=== PATIENT | male | born 1955 | race Caucasian/White ===

== ENCOUNTER → 2017-01-25 | Outpatient (CLI) | payer OTHER ==
[2017-01-25 13:44] LABS: BASO % 0.3 %; BASO ABS # 0.02 K/uL (0-0.2); COMPLETE YES; EOS % 2.3 %; HEMATOCRIT 42.7 % (42-52); IG% 0.8 %; LYMPH % 21.1 %; LYMPH ABS # 1.28 K/uL (1.2-3.4); MEAN CELL VOLUME 93.8 fL (80-100); MEAN CORPUSCULAR HEMOGLOBIN 31.9 pg (25-34); MEAN PLATELET VOLUME 9.1 fL (7.4-10.4); MONO % 10.5 %; PLATELET COUNT 268 K/uL (130-400); RED BLOOD COUNT 4.55 M/uL (4.7-6.1); WHITE BLOOD COUNT 6.08 K/uL (4.8-10.8)
[2017-01-25 14:19] LABS: ALT/SGPT 54 U/L (12-78); AST/SGOT 23 U/L (15-37); BLOOD UREA NITROGEN 13 mg/dl (7-18); BUN/CREATININE RATIO 13.7 (10-20); CALCIUM 9.5 mg/dl (8.5-10.1); CARBON DIOXIDE 30 mmol/L (21-32); CHLORIDE 104 mmol/L (98-107); CREATININE 0.94 mg/dl (0.60-1.40); GLUCOSE 80 mg/dl (70-99); POTASSIUM 4.1 mmol/L (3.5-5.1); SODIUM 140 mmol/L (136-145)
[2017-01-25 14:22] LABS: ALB/GLOB RATIO 0.9 (0.9-2); ALKALINE PHOSPHATASE 78 U/L (45-117)
== END | disposition home or self-care (01) ==
LOC: C.LABMFLN 09:08
PROVIDERS: ATTEND Family Medicine
DX: K81.0 Acute cholecystitis (principal)

== ENCOUNTER → 2017-06-20 | Outpatient (CLI) | payer OTHER ==
[2017-06-20 18:00] LABS: URINE APPEARANCE CLEAR (CLEAR); URINE BILIRUBIN NEG (NEG); URINE COLOR YELLOW; URINE EPITHELIAL CELL AUTO 0-5 /lpf (0-5); URINE NITRITE NEG (NEG); URINE SPECIFIC GRAVITY 1.023 (1.000-1.030); UROBILINOGEN NEG (NEG)
[2017-06-20 18:04] LABS: MANUAL MICROSCOPIC REQUIRED? NO; REVIEW REQ? NO
== END | disposition home or self-care (01) ==
LOC: C.LABMFLN 16:22
PROVIDERS: ATTEND Family Medicine
DX: Z12.5 Encounter for screening for malignant neoplasm of prostate (principal); R35.0 Frequency of micturition

== ENCOUNTER 2018-10-30 06:15 | Inpatient (IN) ==
--- NOTE | 2018-10-11 14:10 | PAT Medication Instructions ---
Medication Instructions Date of Service October 11, 2018 Home Medications indomethacin 25 mg capsule 25 mg PO BID PRN tamsulosin 0.4 mg capsule 0.4 mg PO HS arthrozene 1 cap PO QPM meloxicam 15 mg tablet 15 mg PO QAM calcium carbonate [Tums] 3 tab PO HS PRN ASK your surgeon for instructions indomethacin 25 mg capsule 25 mg PO BID PRN meloxicam 15 mg tablet 15 mg PO QAM STOP taking 2 weeks before surgery arthrozene 1 cap PO QPM Take evening before surgery tamsulosin 0.4 mg capsule 0.4 mg PO HS calcium carbonate [Tums] 3 tab PO HS PRN (if needed) *NOTHING TO EAT OR DRINK AFTER MIDNIGHT* Other Notes If you have any questions please call us at [phone] or [phone] or [phone] or [phone]
--- NOTE | 2018-10-11 14:43 | Anesthesiology Consultation ---
Date of Service October 11, 2018 Assessment & Plan (1) Encounter for pre-operative examination: Chart Review Chart Review: Acceptable Risk for Surgery and Patient seen in Pre Admission Testing Teaching & Discussion Instructed NPO after midnight before surgery, except medications with 15 cc of water. Medication instructions provided according to the PAT guidelines. History Surgery Operation Date: 10/30/18 10:55 Proposed Procedures p Right Total Hip Replacement - Masood Sandhu MD Height/Weight Height: 5 ft 11 in Weight: 110.9 kg Allergies Allergy/AdvReac Type Severity Reaction Status Date / Time OSMAR Inhibitors Allergy Intermediate Hives Verified 10/11/18 08:28 hydroxyzine Allergy Intermediate Hives Verified 10/11/18 08:28 Medications Home Medications Medication Instructions Recorded Confirmed Last Taken indomethacin 25 mg capsule 25 mg PO BID PRN 04/16/18 10/11/18 Unknown tamsulosin 0.4 mg capsule 0.4 mg PO HS 04/16/18 10/11/18 Unknown arthrozene 1 cap PO QPM 10/01/18 10/11/18 Unknown meloxicam 15 mg tablet 15 mg PO QAM 10/01/18 10/11/18 Unknown calcium carbonate [Tums] 3 tab PO HS PRN 10/11/18 10/11/18 Unknown Past Medical History Medical History Hypertension (Chronic) Was previously medicated for, was d/c'd when pt lost insurance and PCP never re-started it. Gout (Chronic) BPH (benign prostatic hyperplasia) (Chronic) NOCTURIA Adenomatous polyp of colon (Chronic) Abdominal aneurysm (Acute) DR. GALAN MONITORS SIZE WITH ULTRASOUNDS YEARLY GERD (gastroesophageal reflux disease) Osteoarthritis Sciatica BACK INJECTIONS (PAIN CLINIC) Past Family History Family History Father Family history of diabetes mellitus Past Surgical History Surgical History History of tonsillectomy and adenoidectomy (Chronic) Hx of cholecystectomy (Acute) History of colonoscopy History of tooth extraction Past Anesthesia History No Hx of Anesthesia Complications and No Family Hx of Anesthesia Complications History of PONV No Motion Sickness Screening History of Motion Sickness: No Social History Smoking Status: Never smoker Do You Dip or Chew Tobacco: No Hx Alcohol Use: No Hx Substance Use: No substance use type: does not use Exercise / Class Metabolic Activity II 4-5 Yardwork/Stairs/Walk up hill (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 Somewhat limited in activity 2/2 hip pain) Review of Systems Pt denies any recent chest pain, shortness of breath, palpitations, cough, fever. Pt reports "head cold" ~1 month ago, treated with Day/NyQuil Physical Exam Vital Signs BP: 120/76 P: 64bpm SPO2: 94% RA T: 97.8 F R: 16 ENMT Mouth: no dental restorations, no chipped teeth and no loose teeth Thyromental Distance: > or= 3.5 Finger Breadths (3.5) Mallampati Class: III Neck + short neck and + facial hair (medium short mancilla and mustache); neck extension not limited Respiratory normal respiratory effort Auscultation: lungs clear to auscultation bilaterally Cardiovascular Rate/Rhythm: regular rate and regular rhythm Heart Sounds: no murmur Vessels: no carotid bruit Extremities: no edema Testing Electrocardiogram Date: 10/11/18 Findings: + NSR @ (60) Chest X-Ray Date: 10/11/18 1. No acute cardiopulmonary findings. 2. Nodular densities projecting over the lower lungs. These favor nipple shadows however follow-up PA and shallow oblique radiographs of the chest with nipple markers are recommended for confirmation. *Results reviewed by PCP. "Cleared for surgery." Laboratory Results 10/11/18 15:00 10/11/18 15:00 Blood Type O Positive 10/11/18 15:00 Antibody Screen NEGATIVE 10/11/18 15:00 PT 10.9 Seconds (9.0-12.0) 10/11/18 15:00 INR 1.1 (0.9-1.1) 10/11/18 15:00 APTT 29.1 Seconds (21.0-31.0) 10/11/18 15:00
--- NOTE | 2018-10-11 15:16 | XRay Report ---
XR chest Pre-admission PA/Lat CLINICAL HISTORY: Preoperative evaluation. COMPARISON STUDY: No previous studies for comparison. FINDINGS: Upper abdominal surgical clips are incidentally noted. There is no pneumothorax or pleural effusion. There is no consolidation or evidence for pulmonary edema. Nodular densities projecting ove r the lower lungs favor nipple shadows. There is no evidence for pulmonary edema. Cardiac size is nor mal. Mediastinal contours are normal. IMPRESSION: 1. No acute cardiopulmonary findings. 2. Nodular densities projecting over the lower lungs. These favor nipple shadows however follow-up PA and shallow oblique radiographs of the chest with nipple markers are recommended for confirmation. Electronically signed by: Pawel Ochoa M.D. 10/11/2018 3:15 PM
[2018-10-11 15:29] LABS: Basophils # (auto) 0.03 K/uL (0-0.2); Basophils % (auto) 0.6 %; Eosinophils # (auto) 0.22 K/uL (0-0.5); Eosinophils % (auto) 4.2 %; Hematocrit (blood only) 43.6 % (42-52); Hemoglobin 14.9 g/dL (14.0-18.0); Immature Granulocytes # (auto) 0.01 K/uL (0.00-0.02); Immature Granulocytes % (auto) 0.2 %; Lymphocytes # (auto) 1.46 K/uL (1.2-3.4); Lymphocytes % (auto) 28.1 %; Mean Corpuscular Hgb Conc 34.2 g/dL (32-36); Mean Corpuscular Volume 97.3 fL (80-100); Mean Platelet Volume 9.6 fL (7.4-10.4); Monocytes # (auto) 0.47 K/uL (0.11-0.59); Monocytes % (auto) 9.1 %; Neutrophils % (auto) 57.8 %; Platelet Count 169 K/uL (130-400); RDW Coefficient of Variation 13.6 % (11.5-14.5); RDW Standard Deviation 48.5 fL (36.4-46.3); Red Blood Count 4.48 M/uL (4.7-6.1); White Blood Count 5.19 K/uL (4.8-10.8)
[2018-10-11 15:36] LABS: BUN Creatinine Ratio 15.9 (10-20); Calcium 9.1 mg/dl (8.5-10.1); Creatinine Clr Calc Pharmacy 81.8 ml/min; Est GFR (African American) 76.4; Potassium 4.1 mmol/L (3.5-5.1)
[2018-10-11 15:49] LABS: INR 1.1 (0.9-1.1); Partial Thromboplastin Ratio 1.1; Partial Thromboplastin Time 29.1 Seconds (21.0-31.0); Prothrombin Time 10.9 Seconds (9.0-12.0)
--- NOTE | 2018-10-26 10:29 | History and Physical Report ---
DATE OF ADMISSION: 10/30/2018 CHIEF COMPLAINT: Right hip and leg pain. 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 He has about 1-year history of markedly increasing right hip pain and discomfort that has just gotten worse over time. He was initially diagnosed with sciatica and treated with some therapy in pain clinic. He has had injections which have not helped much. Eventually, he was referred to my partner, Dr. Lechuga. At that point, he was diagnosed with some hip arthritis. Over time, his pain has just gotten worse. He has pain in his groin and thigh area. The more he walks, the more it hurts. He has difficulty putting his shoes and socks on. The more he walks, the more it hurts. 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 PAST MEDICAL HISTORY: Significant for: 1. AAA, followed by his primary care doctor and apparently stable. 2. Gastroesophageal reflux disease. 3. Obesity with BMI of 34. 4. Low back pain/sciatica. 5. BPH. 6. Gout. PAST SURGICAL HISTORY: Previous surgeries include cholecystectomy. ALLERGIES: Hydroxyzine. CURRENT MEDICINES: 1. Meloxicam 15 mg a day. 2. Tamsulosin. 3. Tums. 4. Indomethacin. SOCIAL HISTORY: A 63-year-old male. 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 He is . He is from [place]. Two children. Does not drink. FAMILY HISTORY: Significant for heart disease, prostate cancer, liver cancer. REVIEW OF HISTORY: Negative for diabetes, neurologic problems, vascular problems, bleeding disorders. No chest pain or shortness of breath. Does have this history of aortic aneurysm which has been stable by ultrasound for 3 years. No history of DVT or PE. PHYSICAL EXAMINATION: GENERAL: Shows a pleasant middle-aged male who looks to be in pretty good health. HEENT: Benign. NECK: Supple. No lymphadenopathy. LUNGS: Clear to auscultation. HEART: Regular rate and rhythm. ABDOMEN: Soft, nontender, nondistended. EXTREMITIES: Grossly neurovascularly intact except as follows: Examination of the right hip and leg reveals patient walks with a significant limp. Leg lengths clinically appear pretty equal. He has got very stiff hip with internal rotation to -5. He has pain with internal rotation. Externally rotates to 20 degrees. Negative straight leg raise. X-RAYS: X-rays of the right hip were reviewed. Shows advanced right hip DJD. He has got complete loss of his superior joint space. He has got cystic changes of the femoral head. X-rays of the knee were reviewed. Shows fairly mild medial compartment arthritis. 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 He has some underlying knee and back issues, looks like his hip is probably the most severe and contributing lesion to his function. PLAN: We talked about treatment. He would like to have his right hip replaced. We are going to take him to the operating room and do a right total hip replacement. The risks and benefits of this procedure were explained to the patient include but not limited to DVT, PE, , infection, neurological injury, vascular injury, bleeding problem, pain, limited range of motion, stiffness, failure to relieve symptoms, incomplete relief of symptoms, need for further surgery in future, fracture, leg length inequality, nerve palsy, dislocation, need for revision surgery. The patient understands and desires to proceed. Informed consent was obtained. We did talk to him about holding his Indocin and meloxicam 10 days preop. He is planning to be discharged home using [facility] home health program.
[~2018-10-30 06:15] MED LIST: ACETAMINOPHEN 500 MG TAB PO SCH; CEFAZOLIN 2000MG 2,000 MG/15 ML SYR IV SCH; FAMOTIDINE 20 MG TAB PO SCH; GABAPENTIN 300 MG x 2 PO SCH; LR 500ML BOLUS, THEN 15ML/HR IV SCH; LR 60ML/HR IV SCH; METOCLOPRAMIDE HCL 10 MG TABLET PO SCH; SCOPOLAMINE 1.5 MG TDSY TD SCH; TRANEXAMIC ACID 1,000 MG **IV Pre-op IV SCH
[2018-10-30] MEDS ORDERED: BUPIVACAINE 0.5 % 5 MG/1 ML PF 10ML VIAL ONE (06:41)
--- NOTE | 2018-10-30 06:54 | History & Physical Bridge Note ---
Date of Service October 30, 2018 History & Physical Bridge Note I have examined the patient, reviewed the History & Physical and in the interval since the performance of the History & Physical I have noted the following changes of clinical significance: no changes noted
[2018-10-30] MEDS ORDERED: DEXAMETHASONE SOD INJ 4 MG/ML VIAL ONE (08:31)
[2018-10-30] MEDS ORDERED: ONDANSETRON INJ 2 MG/ML 2 ML VIAL ONE (08:31)
[2018-10-30] MEDS ORDERED: LIDOCAINE HCL 2% 2 ML VIAL/AMP(20MG/ML) INFIL ONE (08:31)
[2018-10-30] MEDS ORDERED: PROPOFOL IV EMULSION 10 MG/ML 20 ML VIAL IV ONE (08:31)
[2018-10-30] MEDS ORDERED: MoRPHine SULFATE PF 1 MG/ML 10 ML AMP/VIAL ONE (08:33)
[2018-10-30] MEDS ORDERED: MIDAZOLAM HCL 1 MG/ML 2ML VIAL ONE (08:33)
[2018-10-30] MEDS ORDERED: fentaNYL citrate 100 MCG/2 ML VIAL ONE (08:33)
[2018-10-30] MEDS ORDERED: BUPIVACAINE/EPINEPHRINE 0.5% MPF 1:200,000 30 ML VIAL ONE (08:50)
[2018-10-30] MEDS ORDERED: BACITRACIN INJ 50,000 UNIT VIAL ONE (08:51)
[2018-10-30] MEDS ORDERED: MoRPHine SULFATE PF 1 MG/ML 10 ML AMP/VIAL INT SPINAL ONE (09:33)
[2018-10-30] MEDS ORDERED: NALOXONE HCL 1 MG in SODIUM CHLORIDE 0.9% 1000ML 1,000 ML IV PRN (09:33)
[2018-10-30] MEDS ORDERED: LACTATED RINGER'S 500 ML IV PRN (09:33)
[2018-10-30] MEDS ORDERED: ONDANSETRON INJ 2 MG/ML 2 ML VIAL IV PRN ×2 (09:33→12:25)
[2018-10-30] MEDS ORDERED: NALOXONE HCL 0.08 MG in SYRINGE 1.8 ML IV PRN (09:33)
[2018-10-30] MEDS ORDERED: ePHEDrine sulfate 50 MG/ML AMP IV PRN (09:33)
[2018-10-30] MEDS ORDERED: NALOXONE HCL 0.4 MG/1 ML VIAL/CARP IV PRN ×2 (09:33→12:25)
[2018-10-30] MEDS ORDERED: NALBUPHINE HCL INJ 10 MG/ML AMP IV PRN (09:33)
[2018-10-30] MEDS ORDERED: PROMETHAZINE HCL 25 MG in SODIUM CHLORIDE 0.9% 50 ML IV PRN (09:33)
[2018-10-30] MEDS ORDERED: SODIUM CHLORIDE 0.9% 1000ML 1,000 ML IV SCH (09:45)
[2018-10-30] MEDS ORDERED: NO NARCOTICS OR SEDATIVES SCH (09:45)
--- NOTE | 2018-10-30 10:41 | Post Operative Brief Note ---
Immediate Post Op Note v1 Date of Surgery October 30, 2018 Pre & Post Diagnosis Operation Date: 10/30/18 09:05 Pre-Op Diagnosis: Right Hip Degenerative Joint Desease Post-Op Diagnosis: Right Hip Degenerative Joint Desease Procedure Operation Date: 10/30/18 09:05 Actual Procedures p Right Total Hip Replacement(Right) - Masood Sandhu MD Surgeon Masood Sandhu MD Hospital Unit Clerk Veronica, PAC Estimated Blood Loss 200 Findings Consistent with Post-Op Diagnosis Fluids 1800 cc Specimens Right Femoral Head Drains Campoverde Catheter (16fr campoverde placed by Avril Martin PA-C, without difficulty; campoverde demonstrates clear yellow urine. Output measured and recorded by anesthesia.) Anesthesia Type Spinal MAC Complications none Disposition Accompanied Patient To Recovery: Yes Disposition: Recovery Room
--- NOTE | 2018-10-30 11:22 | XRay Report ---
SINGLE VIEW PELVIS; SINGLE VIEW RIGHT HIP CLINICAL HISTORY: Postoperative examination. FINDINGS: An AP portable view of the hips and pelvis with a crosstable lateral portable view of the r ight hip are obtained. A bipolar right hip arthroplasty is in near-anatomic alignment. At least 2 co rtical lag screws transfix the acetabular cup. No acute fracture is identified. There are expected po stoperative changes overlying the right hip including skin clips, subcutaneous gas, and soft tissue s welling. A Cedillo catheter is in place. IMPRESSION: Expected postoperative findings status post right hip arthroplasty. No acute fracture is seen. Electronically signed by: Gonzalo Yi M.D. 10/30/2018 11:20 AM
--- NOTE | 2018-10-30 12:05 | Anesthesiology Progress Note ---
Date of Service October 30, 2018 Anesthesia Post Procedure Vital Signs Vital Signs: Temp Pulse Resp BP Pulse Ox 10/30/18 11:49 36.6 C 81 19 100/66 98 10/30/18 11:40 77 14 102/66 100 10/30/18 11:30 81 16 111/65 96 10/30/18 11:20 78 20 96/62 L 96 10/30/18 11:10 86 20 99/57 L 93 10/30/18 11:00 81 19 100/64 97 10/30/18 10:50 91 H 20 104/60 97 10/30/18 10:43 36.3 C L 89 16 92/63 L 95 10/30/18 06:59 36.8 C 68 20 124/92 92 Notes Mental Status: alert / awake / arousable Patient Amnestic to Procedure: Yes Nausea / Vomiting: adequately controlled Pain: adequately controlled Airway Patency, RR, SpO2: stable & adequate BP & HR: stable & adequate Hydration State: stable & adequate Neuraxial Anesthesia: was administered and sensory block is resolving Anesthetic Complications: no major complications apparent
[2018-10-30] MEDS ORDERED: BISACODYL 10 MG SUPP PR PRN (12:25)
[2018-10-30] MEDS ORDERED: HYDROmorphone INJ 0.5 MG/0.5 ML SYR IV PRN (12:25)
[2018-10-30] MEDS ORDERED: TAMSULOSIN HCL 0.4 MG CAP PO PRN (12:25)
[2018-10-30] MEDS ORDERED: CALCIUM CARBONATE 500 MG CHEWABLE TAB PO PRN ×2 (12:25→12:49)
[2018-10-30] MEDS ORDERED: ALUMINUM/MAGNESIUM SUSP 30 ML UDC PO PRN (12:25)
[2018-10-30] MEDS ORDERED: TRAMADOL HCL 50 MG TABLET PO PRN (12:25)
[2018-10-30] MEDS ORDERED: METOCLOPRAMIDE HCL INJ 5 MG/ML 2 ML VIAL IV PRN (12:25)
[2018-10-30] MEDS ORDERED: MAGNESIUM HYDROXIDE SUSP 30 ML UDC PO PRN (12:25)
--- NOTE | 2018-10-30 12:27 | Operative Report ---
DATE OF OPERATION: 10/30/2018 SURGEON: Masood Sandhu MD. INFRASTRUCTURE SECURITY ARCHITECT: JAYDA Solomon. PREOPERATIVE DIAGNOSIS: Right hip degenerative joint disease. POSTOPERATIVE DIAGNOSIS: Right hip degenerative joint disease. PROCEDURE PERFORMED: Right uncemented ceramic on highly cross-linked polyethylene total hip arthroplasty. COMPLICATIONS: None. ESTIMATED BLOOD LOSS: 200 mL. FLUID REPLACEMENT: 1800 mL of crystalloid fluid replacement. ANESTHESIA: Spinal. DRAINS: None. SPECIMENS: Right femoral head sent for Pathology. OPERATIVE INDICATIONS: The patient is a 63-year-old gentleman who has had a 1 year history of markedly increased right hip pain and discomfort. He has been unresponsive to conservative care. He has been through extensive treatment including medicines and injections at Pain Clinic without adequate relief. X-ray show advanced right hip DJD. He elected to proceed with total hip arthroplasty. OPERATIVE FINDINGS: Operative findings were advanced right hip DJD. A grade 4 [id number] disease of the femoral head and acetabulum. Moderate size joint effusion. OPERATIVE IMPLANTS: Operative implants consisted of: 1. Biomet G7 size 58 mm acetabular shell. 2. A 6.5 cancellous acetabular screws, 1 at 35 mm length and 1 at 30 mm length. 3. An apex hole eliminator. 4. Highly cross-linked polyethylene liner with 58 mm outer diameter, 36 mm inner diameter with a vasquez placed inferior and posterior. 5. DePuy Corail size 12 KLA femoral stem. 6. A +8.5/36 mm ceramic articular ball. OPERATIVE PROCEDURE: The patient was taken to the Operating Room, identified and placed on the operative table in supine position. All contact areas were appropriately padded. IV antibiotics were provided by Anesthesia Team. A spinal anesthetic had been implemented in the holding area. Cedillo catheter was placed in sterile fashion. The patient was then placed in the left lateral decubitus position. An axillary roll was placed. Stlberg hip positioner was used for positioning. Right hip and leg were then prepped and draped in usual sterile fashion. A posterolateral approach to the right hip was then performed through a curvilinear incision centered over the greater trochanter. Sharp dissection carried through subcutaneous tissue down to the IT band and gluteal fascia. The IT band and gluteal fascia were incised longitudinally in line with skin incision. The underlying greater trochanteric bursa was excised. Piriformis and external rotators were tagged and taken off the posterior aspect of the hip joint capsule. Great care was taken throughout the procedure to protect the sciatic nerve at all times. Posterior capsulotomy was then performed leaving a large flap for later repair. Hip was internally rotated and dislocated. Femoral neck osteotomy cut was made with the final cut 16 mm above the lesser trochanter. Femoral head was removed and sent for pathology. Attention was then drawn to the acetabulum. The acetabular labrum was excised. The pulvinar fat was excised. Sequential reaming of the acetabulum was then performed beginning with a size 51 and progressing up to 57. A 58 mm Biomet G7 acetabular shell was then placed in about 40 degrees of lateral opening and 20 degrees of anteversion. It was fixed with two 6.5 cancellous acetabular screws. A trial liner was placed. Attention was then drawn to the femur. The proximal femur was entered with a goCatchie cutter followed by canal finder. I broached beginning with a size 8 and progressing up to 12. He had a very good cancellous bone support and we had good rotational stability. I felt it was getting little bit tight distally, so we stopped at 12. Calcar reamer was used to smoothen off the calcar. I then trialed the hip. The +5 articular ball was fairly stable, but soft tissue tension was still fairly loose. I did place a +8.5/36 mm articular ball. Hip was fully stable in full extension and external rotation and flexion to 90 degrees, internal rotation to about 50 degrees. I did elect to place a vasquez inferior and posterior to maximize his stability in flexion. We elected to use these implants. All trial implants were removed. An apex hole eliminator was placed. Highly cross-linked polyethylene liner was placed with a vasquez placed inferior and posterior. A Corail size 12 KLA femoral stem was impacted in position. A +8.5/36 mm ceramic articular ball was placed. Hip was located and once again found to be stable. Attention was then drawn toward closing. The wound was irrigated with copious amounts of pulsatile lavage solution. I did inject locally with 60 mL of 0.5% Marcaine with epinephrine. Posterior capsule and external rotators were then repaired through drill holes in the posterior trochanter with #2 Ti-Cron suture. The IT band and gluteal fascia were then closed with #1 PDS suture in running fashion. The subcutaneous tissues were then closed with 2-0 Dexon suture in a buried interrupted fashion. The skin was closed with skin annel. Leg was then cleaned, dried and a sterile dressing with Xeroform, 4 x 4's, sterile ABD pad and foam tape was applied. The patient was then transferred to the Recovery Room in stable condition. The patient tolerated the procedure well with no complication. All needle and sponge counts were correct at the end of the operation. I attest to the content of the Intraoperative Record and any orders documented therein. Any exception s are noted below.
[2018-10-30] MEDS: SODIUM CHLORIDE 0.9% 1000ML 1,000 ML IV SCH ×2 (12:56→20:53)
[2018-10-30] MEDS: KETOROLAC 30 MG/ML VIAL IV SCH ×2 (12:56→17:53)
[2018-10-30] MEDS: ACETAMINOPHEN 500 MG TAB PO SCH ×2 (12:56→20:53)
[2018-10-30] MEDS ORDERED: TRANEXAMIC ACID 1,000 MG in 0.9 % SODIUM CHLORIDE 100 ML IV SCH (16:30)
[2018-10-30] MEDS: CEFAZOLIN 2000MG 2,000 MG/15 ML SYR IV SCH (17:33)
[2018-10-30] MEDS: CHECK SCOPOLAMINE PATCH PLACEMENT SCH (17:33)
[2018-10-30] MEDS: ASCORBIC ACID 500 MG TAB PO SCH (17:51)
[2018-10-30] MEDS: FERROUS GLUCONATE 324 MG TAB PO SCH (17:51)
[2018-10-30] MEDS: DOCUSATE SODIUM 100 MG CAP PO SCH (20:52)
[2018-10-30] MEDS: SENNA 8.6 MG TAB PO SCH (20:52)
[2018-10-30] MEDS: TAMSULOSIN HCL 0.4 MG CAP PO SCH (20:53)
[2018-10-30] MEDS: ASPIRIN 81 MG ECTAB PO SCH (20:53)
[2018-10-30] MEDS ORDERED: ARTHROZENE PO SCH (21:00)
[2018-10-31] MEDS: KETOROLAC 30 MG/ML VIAL IV SCH ×5 (00:40→23:52)
[2018-10-31] MEDS: CEFAZOLIN 2000MG 2,000 MG/15 ML SYR IV SCH (00:41)
[2018-10-31] MEDS: CHECK SCOPOLAMINE PATCH PLACEMENT SCH (00:41)
[2018-10-31] MEDS ORDERED: DC INTRASPINAL MORPHINE ONE (03:45)
[2018-10-31] MEDS ORDERED: TRAMADOL HCL 50 MG TABLET PO PRN (03:46)
[2018-10-31] MEDS ORDERED: ONDANSETRON INJ 2 MG/ML 2 ML VIAL IV PRN (03:46)
[2018-10-31] MEDS ORDERED: HYDROmorphone INJ 0.5 MG/0.5 ML SYR IV PRN (03:46)
[2018-10-31] MEDS ORDERED: NALOXONE HCL 0.4 MG/1 ML VIAL/CARP IV PRN (03:46)
[2018-10-31] MEDS: ACETAMINOPHEN 500 MG TAB PO SCH ×3 (05:28→20:58)
[2018-10-31 06:42] LABS: Basophils # (auto) 0.01 K/uL (0-0.2); Basophils % (auto) 0.1 %; Eosinophils # (auto) 0.17 K/uL (0-0.5); Eosinophils % (auto) 2.3 %; Hematocrit (blood only) 39.1 % (42-52); Hemoglobin 13.1 g/dL (14.0-18.0); Immature Granulocytes # (auto) 0.01 K/uL (0.00-0.02); Immature Granulocytes % (auto) 0.1 %; Lymphocytes # (auto) 0.94 K/uL (1.2-3.4); Lymphocytes % (auto) 12.8 %; Mean Corpuscular Hgb Conc 33.5 g/dL (32-36); Mean Corpuscular Volume 96.8 fL (80-100); Mean Platelet Volume 9.7 fL (7.4-10.4); Monocytes # (auto) 0.55 K/uL (0.11-0.59); Monocytes % (auto) 7.5 %; Neutrophils # (auto) 5.69 K/uL (1.4-6.5); Neutrophils % (auto) 77.2 %; Platelet Count 146 K/uL (130-400); RDW Coefficient of Variation 13.5 % (11.5-14.5); RDW Standard Deviation 48.4 fL (36.4-46.3); Red Blood Count 4.04 M/uL (4.7-6.1); White Blood Count 7.37 K/uL (4.8-10.8)
[2018-10-31 07:20] LABS: BUN Creatinine Ratio 14.2 (10-20); Calcium 8.3 mg/dl (8.5-10.1); Creatinine Clr Calc Pharmacy 89.2 ml/min; Est GFR (African American) 86.1; Est GFR (Non-African American) 74.3; Potassium 3.9 mmol/L (3.5-5.1)
--- NOTE | 2018-10-31 07:26 | Orthopedic Progress Note ---
Date of Service October 31, 2018 Assessment & Plan (1) Status post total hip replacement, right: seen and examined by Dr. Sandhu today continue PT/OT wbat, total hip precautions dvt prophylaxis with teds, scds, aspirin d/c planning for tomorrow Subjective POD #1 from right JEAN. No pain. No chest pain or shortness of breath. Physical Exam Vital Signs (Past 24 Hours): Last Vital Signs Temp 36.4 C L 10/31/18 04:07 Pulse 55 L 10/31/18 04:07 Resp 17 10/31/18 04:07 BP 107/71 10/31/18 04:07 Pulse Ox 95 10/31/18 04:15 Musculoskeletal: alert and oriented. NAD Hip is located. NVI
--- NOTE | 2018-10-31 08:43 | Anesthesiology Progress Note ---
Date of Service October 31, 2018 Anesthesia Post Procedure Vital Signs Vital Signs: Temp Pulse Pulse Resp BP Pulse Ox Pulse Ox 10/31/18 08:12 36.7 C 54 L 18 126/73 94 10/31/18 04:15 95 10/31/18 04:07 36.4 C L 55 L 17 107/71 96 10/31/18 03:07 17 94 10/31/18 02:15 16 91 10/31/18 01:10 18 95 10/31/18 00:40 36.9 C 58 L 16 98 10/31/18 00:13 18 94 10/30/18 23:12 19 96 10/30/18 23:03 36.3 C L 53 L 17 103/62 96 10/30/18 22:10 18 96 10/30/18 21:10 20 96 10/30/18 20:13 74 20 138/76 97 10/30/18 19:18 20 98 10/30/18 18:15 18 98 10/30/18 16:10 18 96 10/30/18 15:20 95 10/30/18 15:12 36.5 C 74 20 109/63 94 10/30/18 15:10 16 95 10/30/18 14:15 67 16 108/67 94 10/30/18 14:10 18 94 10/30/18 13:11 79 15 125/82 93 10/30/18 13:10 16 94 10/30/18 12:48 68 18 113/71 92 10/30/18 12:33 36.2 C L 74 16 110/70 98 98 10/30/18 12:10 16 98 10/30/18 11:49 36.6 C 81 19 100/66 98 10/30/18 11:40 77 14 102/66 100 10/30/18 11:30 81 16 111/65 96 10/30/18 11:20 78 20 96/62 L 96 10/30/18 11:10 86 20 99/57 L 93 10/30/18 11:00 81 19 100/64 97 10/30/18 10:50 91 H 20 104/60 97 10/30/18 10:43 36.3 C L 89 16 92/63 L 95 Notes Mental Status: alert / awake / arousable and participated in evaluation Patient Amnestic to Procedure: Yes Nausea / Vomiting: adequately controlled Pain: adequately controlled Airway Patency, RR, SpO2: stable & adequate BP & HR: stable & adequate Hydration State: stable & adequate Neuraxial Anesthesia: was administered and sensory block resolved Anesthetic Complications: no major complications apparent and Pt Satisfied with anesthetic care
[2018-10-31] MEDS: MULTIVITAMIN TAB PO SCH (08:48)
[2018-10-31] MEDS: ASPIRIN 81 MG ECTAB PO SCH ×2 (08:48→20:57)
[2018-10-31] MEDS: ASCORBIC ACID 500 MG TAB PO SCH ×2 (08:48→17:53)
[2018-10-31] MEDS: FERROUS GLUCONATE 324 MG TAB PO SCH ×2 (08:48→17:53)
[2018-10-31] MEDS: DOCUSATE SODIUM 100 MG CAP PO SCH ×2 (08:49→20:57)
[2018-10-31] MEDS: TAMSULOSIN HCL 0.4 MG CAP PO SCH (20:57)
[2018-10-31] MEDS: SENNA 8.6 MG TAB PO SCH (20:57)
[2018-11-01] MEDS: ACETAMINOPHEN 500 MG TAB PO SCH (05:26)
[2018-11-01] MEDS: KETOROLAC 30 MG/ML VIAL IV SCH (05:26)
[2018-11-01] MEDS: DOCUSATE SODIUM 100 MG CAP PO SCH ×2 (07:45→07:48)
[2018-11-01] MEDS: MULTIVITAMIN TAB PO SCH (07:45)
[2018-11-01] MEDS: FERROUS GLUCONATE 324 MG TAB PO SCH ×2 (07:45→07:48)
[2018-11-01] MEDS: ASCORBIC ACID 500 MG TAB PO SCH (07:45)
[2018-11-01] MEDS: ASPIRIN 81 MG ECTAB PO SCH (07:45)
--- NOTE | 2018-11-01 07:48 | Progress Note ---
DATE: 11/01/2018 SUBJECTIVE: A 63-year-old gentleman postop day 2 from a right hip replacement. He is doing well. Pain is controlled. Having a little abdominal discomfort and then had 2 bowel movements and feeling better this morning. No chest pain or shortness of breath. Not feeling dizzy or lightheaded. OBJECTIVE: VITAL SIGNS: Temperature 36.8. Vital signs stable. MUSCULOSKELETAL: Examination of the right reveals the dressing to be clean, dry and intact. Hip is located. Thigh is soft and supple. He is neurologically intact. ASSESSMENT: A 63-year-old gentleman postop day 2 from right hip replacement, doing pretty well. His pain is controlled. Hip is located. He is neurologically intact. PLAN: 1. DVT prophylaxis including thigh-high TEDs, SCDs, and aspirin twice a day. 2. PT/OT. Weight bear as tolerated. Right total hip protocol. 3. Pain control, doing well with current pain regimen. 4. Disposition: Plan to discharge to home with some home health later today.
--- NOTE | 2018-11-06 14:56 | Discharge Summary ---
ADMITTING PHYSICIAN AND SURGEON: Dr. Masood Sandhu. ADMITTING DIAGNOSIS: Right hip degenerative joint disease. SURGERY PERFORMED: Right total hip arthroplasty. CONSULTS: None obtained. HISTORY AND PHYSICAL EXAM: Well documented in the patient's chart. HOSPITAL COURSE: The patient was admitted on 10/30/2018 underwent total hip arthroplasty, tolerated the procedure well. There were no complications. He was transferred to the PACU postoperatively and later to the orthopedic for further care. He was given Ancef for antibiotic prophylaxis, TERESA stockings, SCDs and aspirin for DVT prophylaxis. Hemoglobin, hematocrit and vital signs were monitored during his hospital stay and remained stable. He did not require any blood transfusions. There were no complications. By postoperative day 2, he was tolerating a regular diet, pain was controlled with oral pain medicine. He was participating in physical therapy. Postop day 2, he was discharged home, set up with home health services, given printed discharge instructions including new prescriptions for extra strength Tylenol, aspirin and tramadol. Continue home medications, continue physical therapy, weightbearing as tolerated, TERESA stockings and continue hip precautions. Followup in approximately 2 weeks postop or sooner if there are any problems or concerns.
== END 2018-11-01 11:48 | disposition home health service (06) | DRG 470 ==
LOC: ASU 06:15 → 3E 10:45

== ENCOUNTER 2018-11-25 15:45 | Inpatient (IN) ==
[2018-11-25] MEDS ORDERED: SODIUM CHLORIDE 0.9% 1000ML 1,000 ML IV SCH (16:15)
[2018-11-25] MEDS ORDERED: FAMOTIDINE 20MG/5ML IV PUSH IV STA (16:17)
[2018-11-25] MEDS ORDERED: ONDANSETRON INJ 2 MG/ML 2 ML VIAL IV STA (16:17)
[2018-11-25] MEDS ORDERED: PANTOprazole 80 MG in DEXTROSE 5% 100 ML IV STA (16:22)
--- NOTE | 2018-11-25 16:28 | Emergency Department Note ---
ED Visit Note The patient was seen and examined with Masood Chapman PA-C. I agree with the history, physical and findings. The patient is moderately anemic. His h emoglobin is 7.6. He is hemodynamically stable. The patient has been consented for packed red blood cell transfusion. GI was consulted. Internal medicine was consulted. Please see the note for disposition and details. .
--- NOTE | 2018-11-25 16:38 | Emergency Department Note ---
History of Present Illness General Chief complaint: Abnormal Labs/Diagnostic Testing Stated complaint: LOW BLOOD COUNTS Time Seen by Provider: 11/25/18 16:01 History of Present Illness Maximum Pain Intensity: 0 This is a 63-year-old male presenting to the emergency department for evaluation of worsening weakness and anemia. The patient was initially seen and evaluated in this department yesterday after having dark stool. His hemoglobin was 9.7. After discussing the case with GI yesterday the patient was discharged for outpatient follow-up. The patient contacted his PCP today, as he has had worsening symptoms. Outpatient blood work was performed and evidently the patient had a hemoglobin of 7.4. The patient now presents to this department for further evaluation. The patient does have a recent history of right hip replacement last month. He has been on aspirin since the procedure. There has been some upper GI discomfort including nausea, which he has been treating with Tums at home for the past several weeks. No hematemesis. The patient only started with weakness and dark stools over the past several days. He is not having significant pain or discomfort at this time. He does feel weak with walking but not distinctly short of breath. No fever or chills. Home Medications Home Medications Medication Instructions Recorded Confirmed Type tamsulosin 0.4 mg capsule 0.4 mg PO HS 04/16/18 11/25/18 History calcium carbonate [Tums] 3 tab PO HS PRN 10/11/18 11/25/18 History acetaminophen [Pain Reliever] 1,000 mg PO Q8 PRN 11/24/18 11/25/18 History pantoprazole [Protonix] 40 mg PO BID 10 Days #20 tab 11/24/18 11/25/18 Rx Allergies Allergy/AdvReac Type Severity Reaction Status Date / Time OSMAR Inhibitors Allergy Intermediate Hives Verified 11/24/18 17:15 hydroxyzine Allergy Intermediate Hives Verified 11/24/18 17:15 Past Med/Surg History Medical History Abdominal aneurysm (Acute) DR. GALAN MONITORS SIZE WITH ULTRASOUNDS YEARLY GERD (gastroesophageal reflux disease) Sciatica BACK INJECTIONS (PAIN CLINIC) Osteoarthritis Hypertension (Chronic) Was previously medicated for, was d/c'd when pt lost insurance and PCP never re-started it. 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 Feels Safe at Home: Yes Smoking Status: Never smoker Second Hand Exposure: Yes (IN THE PAST 30 YEARS AGO) Hx Alcohol Use: No Hx Substance Use: No Review of Systems A total of 10 systems reviewed and were otherwise negative Physical Exam Vital Signs Vital Signs - 24 hr 11/25/18 15:47 11/25/18 15:57 11/25/18 16:01 Temperature 36.5 C Temperature Source Oral Sepsis Recent Fever Within 48 Hours No Sepsis Action Taken by Nursing No Action Required Pulse Rate 94 H 92 H 88 Respiratory Rate 20 15 27 H Respiratory Effort / Characteristics Non-Labored Respiratory Depth Normal Blood Pressure 151/74 H 113/79 Blood Pressure Mean 99 90 Pulse Oximetry 98 Oxygen Delivery Method Room Air 11/25/18 16:30 11/25/18 17:00 Temperature Temperature Source Sepsis Recent Fever Within 48 Hours Sepsis Action Taken by Nursing Pulse Rate 88 82 Respiratory Rate 18 22 Respiratory Effort / Characteristics Respiratory Depth Blood Pressure 135/77 Blood Pressure Mean 96 Pulse Oximetry 97 96 Oxygen Delivery Method VITALS: Vitals are noted on the nurse's note and reviewed by myself. Vital signs stable. GENERAL: Mildly pale appearing white male, who is in no acute distress and resting comfortably. Patient is cooperative with the examination. HEAD: Normocephalic atraumatic. MOUTH: Mucous membranes moist. Tonsils are not enlarged. Pharynx without erythema, blood, or exudate. Uvula midline. Airway patent. NECK: Supple without nuchal rigidity. No lymphadenopathy. No thyromegaly. Cervical spine is nontender. HEART: Regular rate and rhythm without murmurs gallops or rubs. LUNGS: Clear to auscultation bilaterally without wheezes, rales or rhonchi. No retractions or accessory muscle use. ABDOMEN: Positive normal bowel sounds x 4. Soft, nontender, without masses or organomegaly. No guarding or rebound tenderness. MUSCULOSKELETAL: No muscle atrophy, erythema, or edema noted. Full range of motion in all extremities. NEURO: Patient was alert and oriented to person place and time. CN II through XII grossly intact. SKIN: The skin was without rashes, erythema, edema, or bruising. Capillary refill less than 2 seconds. Course Administered Medications Discontinued Medications Famotidine (Pepcid 20mg Iv Push) 20 mg IV ONE STA Stop: 11/25/18 16:18 Last Admin: 11/25/18 16:38 Dose: 20 mg Documented by: [id number] Sodium Chloride (Nss 1000ml) 1,000 mls @ 999 mls/hr IV .Q1H1M GLENNY Stop: 11/25/18 17:15 Last Infusion: 11/25/18 17:50 Dose: 0 mls/hr Documented by: [id number] Admin: 11/25/18 16:39 Dose: 999 mls/hr Documented by: [id number] Pantoprazole Sodium 80 mg/ (Dextrose) 120 mls @ 480 mls/hr IV NOW STA Stop: 11/25/18 16:36 Last Infusion: 11/25/18 17:21 Dose: 0 mls/hr Documented by: [id number] Admin: 11/25/18 16:39 Dose: 480 mls/hr Documented by: [id number] Ondansetron HCl (Zofran) 4 mg IV NOW STA Stop: 11/25/18 16:18 Last Admin: 11/25/18 16:38 Dose: 4 mg Documented by: [id number] Medical Decision Making Differential Diagnosis Differential diagnosis: Etiologies such as esophagitis, variceal bleed, Boerhaaves, Malott-Gregory tear, gastritis, peptic ulcer disease, AVM, inflammatory bowel disease, ischemia, diverticulosis, colitis, malignancy, coagulopathy, thrombocytopenia, fissure, hemorrhoid, epistaxis , as well as others were entertained. Laboratory Data Result diagrams: 11/25/18 16:25 11/25/18 16:26 Lab Results 11/25/18 11/25/18 11/25/18 Range/Units 16:25 16:25 16:26 WBC 8.44 (4.8-10.8) K/uL RBC 2.31 L (4.7-6.1) M/uL Hgb 7.6 L (14.0-18.0) g/dL Hct 22.3 L (42-52) % MCV 96.5 (80-100) fL MCH 32.9 (25-34) pg MCHC 34.1 (32-36) g/dL RDW Std Deviation 50.8 H (36.4-46.3) fL RDW Coeff of Hang 15.0 H (11.5-14.5) % Plt Count 218 (130-400) K/uL MPV 9.0 (7.4-10.4) fL Immature Gran % (Auto) 1.7 % Neut % (Auto) 65.9 % Lymph % (Auto) 18.1 % [place] % (Auto) 11.6 % Eos % (Auto) 2.3 % Baso % (Auto) 0.4 % Immature Gran # (Auto) 0.14 H (0.00-0.02) K/uL Neut # (Auto) 5.57 (1.4-6.5) K/uL Lymph # (Auto) 1.53 (1.2-3.4) K/uL [place] # (Auto) 0.98 H (0.11-0.59) K/uL Eos # (Auto) 0.19 (0-0.5) K/uL Baso # (Auto) 0.03 (0-0.2) K/uL Absolute Nucleated RBC 0.08 H (0-0) K/uL Nucleated RBC % (auto) 1.0 % Polychromasia 1+ PT 11.0 (9.0-12.0) Seconds INR 1.1 (0.9-1.1) APTT 21.9 (21.0-31.0) Seconds PTT Ratio 0.8 Sodium (136-145) mmol/L Potassium (3.5-5.1) mmol/L Chloride (98-107) mmol/L Carbon Dioxide (21-32) mmol/L Anion Gap (3-11) BUN (7-18) mg/dl Creatinine (0.6-1.4) mg/dl Est Cr Clr Drug Dosing ml/min Est GFR ( Amer) Est GFR (Non-Af Amer) BUN/Creatinine Ratio (10-20) Glucose (70-99) mg/dl Calcium (8.5-10.1) mg/dl Magnesium (1.8-2.4) mg/dl Total Bilirubin (0.2-1) mg/dl AST (15-37) U/L ALT (12-78) U/L Alkaline Phosphatase (45-117) U/L Troponin I (0-0.045) ng/ml Total Protein (6.4-8.2) gm/dl Albumin (3.4-5.0) gm/dl Globulin (2.5-4.0) gm/dl Albumin/Globulin Ratio (0.9-2) Lipase (73-393) U/L TSH (0.300-4.500) uIu/ml Blood Type O Positive Antibody Screen NEGATIVE 11/25/18 Range/Units 16:26 WBC (4.8-10.8) K/uL RBC (4.7-6.1) M/uL Hgb (14.0-18.0) g/dL Hct (42-52) % MCV (80-100) fL MCH (25-34) pg MCHC (32-36) g/dL RDW Std Deviation (36.4-46.3) fL RDW Coeff of Hang (11.5-14.5) % Plt Count (130-400) K/uL MPV (7.4-10.4) fL Immature Gran % (Auto) % Neut % (Auto) % Lymph % (Auto) % [place] % (Auto) % Eos % (Auto) % Baso % (Auto) % Immature Gran # (Auto) (0.00-0.02) K/uL Neut # (Auto) (1.4-6.5) K/uL Lymph # (Auto) (1.2-3.4) K/uL Fill[place] # (Auto) (0.11-0.59) K/uL Eos # (Auto) (0-0.5) K/uL Baso # (Auto) (0-0.2) K/uL Absolute Nucleated RBC (0-0) K/uL Nucleated RBC % (auto) % Polychromasia PT (9.0-12.0) Seconds INR (0.9-1.1) APTT (21.0-31.0) Seconds PTT Ratio Sodium 139 (136-145) mmol/L Potassium 3.8 (3.5-5.1) mmol/L Chloride 108 H (98-107) mmol/L Carbon Dioxide 24 (21-32) mmol/L Anion Gap 7.0 (3-11) BUN 28 H (7-18) mg/dl Creatinine 1.01 (0.6-1.4) mg/dl Est Cr Clr Drug Dosing 94.6 ml/min Est GFR ( Amer) 91.3 Est GFR (Non-Af Amer) 78.8 BUN/Creatinine Ratio 27.8 H (10-20) Glucose 94 (70-99) mg/dl Calcium 8.3 L (8.5-10.1) mg/dl Magnesium 2.1 (1.8-2.4) mg/dl Total Bilirubin 0.2 (0.2-1) mg/dl AST 15 (15-37) U/L ALT 24 (12-78) U/L Alkaline Phosphatase 82 (45-117) U/L Troponin I < 0.015 (0-0.045) ng/ml Total Protein 5.7 L (6.4-8.2) gm/dl Albumin 3.1 L (3.4-5.0) gm/dl Globulin 2.6 (2.5-4.0) gm/dl Albumin/Globulin Ratio 1.2 (0.9-2) Lipase 158 (73-393) U/L TSH 1.960 (0.300-4.500) uIu/ml Blood Type Antibody Screen ECG Data Additional Comments: Normal sinus rhythm @87bpm Normal ECG W hen compared with ECG of 24-NOV-2018 16:38, PVC's no longer present MDM Narrative Physical exam and history were performed. Nursing notes, EMR, and Medication List were personally reviewed. Patient appears to have worsening GI bleed symptoms over the past several days. The patient has had a distinct drop in his hemoglobin over the past 24 hours. IV access x2 was established. Labs were obtained. The patient was given IV Protonix, IV Pepcid, IV Zofran, and IV saline. He was placed on the alarm security or surveillance monitor. EKG was performed. The case was discussed with my attending physician, Dr. Mccartney, who also independently evaluated the patient. Blood transfusion consent was performed if needed. I did additionally discuss the case with the ER pharmacist to obtain and provide Protonix out of concern for his active bleed. The patient's blood work is as above and was reviewed. He does not have a significantly elevated white blood cell count. His hemoglobin for us today is 7.6, which is concerning. Platelet count is normal. INR is 1.1. BUN is slightly elevated at 28, however this is improved from his BUN yesterday of 32. Transaminases are not diagnostic. Lipase is normal. Troponin x1 is negative. He is blood type O+. The patient case was discussed with the [facility] slot shift manager, Dr Denney. Recommendation was to keep the patient n.p.o. after midnight, where upper GI scope will be performed tomorrow. Overall the patient does not appear well for discharge home. He presumably has an upper GI bleed and worsening anemia. His vital signs are currently stable and he does not require emergent transfusion at this time. I discussed the case with the on-call hospitalist. Please see the hospitalist dictation for further patient course, plan, and disposition. The chart was completed utilizing [employer] Speech Voice Recognition Software. Grammatical errors, random word insertions, pronoun errors, and incomplete sentences are an occasional consequence of this system due to software limitations, ambient noise, and hardware issues. Any formal questions or concerns about the content, text, or information contained within the body of this dictation should be directly addressed to the provider for clarification. . Impression & Plan Acute GI bleeding, Anemia Discharge Plan Visit Data Chief Complaint: Abnormal Labs/Diagnostic Testing Stated Complaint: LOW BLOOD COUNTS ED Provider: Mark Anthony Mccartney ED Midlevel Provider: Masood Chapman Discharge Problem: Acute GI bleeding, Anemia Forms Stand Alone Forms: [facility] [place] [employer] Prescriptions Prescriptions: No Action tamsulosin [Flomax] 0.4 mg capsule 0.4 mg PO HS RF: 0 acetaminophen [Pain Reliever] 500 mg tablet 1,000 mg PO Q8 PRN (Reason: Pain) RF: 0 pantoprazole [Protonix] 40 mg tablet,delayed release (DR/EC) 40 mg PO BID 10 Days Qty: 20 RF: 0 calcium carbonate [Tums] 200 mg calcium (500 mg) Tablet,Chewable 3 tab PO HS PRN (Reason: Indigestion) RF: 0 Discharge Problem: Anemia Qualifiers: Anemia type: unspecified type Qualified Code(s): D64.9 - Anemia, unspecified
[2018-11-25 16:43] LABS: Basophils # (auto) 0.03 K/uL (0-0.2); Basophils % (auto) 0.4 %; Eosinophils # (auto) 0.19 K/uL (0-0.5); Eosinophils % (auto) 2.3 %; Hematocrit (blood only) 22.3 % (42-52); Hemoglobin 7.6 g/dL (14.0-18.0); Immature Granulocytes # (auto) 0.14 K/uL (0.00-0.02); Immature Granulocytes % (auto) 1.7 %; Lymphocytes # (auto) 1.53 K/uL (1.2-3.4); Lymphocytes % (auto) 18.1 %; Mean Corpuscular Hgb Conc 34.1 g/dL (32-36); Mean Corpuscular Volume 96.5 fL (80-100); Monocytes # (auto) 0.98 K/uL (0.11-0.59); Monocytes % (auto) 11.6 %; Neutrophils # (auto) 5.57 K/uL (1.4-6.5); Neutrophils % (auto) 65.9 %; Nucleated RBC # (auto) 0.08 K/uL (0-0); Platelet Count 218 K/uL (130-400); RDW Standard Deviation 50.8 fL (36.4-46.3); Red Blood Count 2.31 M/uL (4.7-6.1); White Blood Count 8.44 K/uL (4.8-10.8)
[2018-11-25 16:56] LABS: INR 1.1 (0.9-1.1); Partial Thromboplastin Ratio 0.8; Partial Thromboplastin Time 21.9 Seconds (21.0-31.0)
[2018-11-25 17:07] LABS: Polychromasia 1+
[2018-11-25 17:25] LABS: Albumin Level 3.1 gm/dl (3.4-5.0); BUN Creatinine Ratio 27.8 (10-20); Blood Urea Nitrogen 28 mg/dl (7-18); Calcium 8.3 mg/dl (8.5-10.1); Carbon Dioxide 24 mmol/L (21-32); Chloride 108 mmol/L (98-107); Creatinine Clr Calc Pharmacy 94.6 ml/min; Est GFR (African American) 91.3; Est GFR (Non-African American) 78.8; Glucose 94 mg/dl (70-99); Magnesium 2.1 mg/dl (1.8-2.4); Potassium 3.8 mmol/L (3.5-5.1); Sodium 139 mmol/L (136-145)
[2018-11-25 17:37] LABS: Alanine Aminotransferase 24 U/L (12-78); Albumin Globulin Ratio 1.2 (0.9-2); Alkaline Phosphatase 82 U/L (45-117); Aspartate Aminotransferase 15 U/L (15-37); Bilirubin,Total 0.2 mg/dl (0.2-1); Globulin 2.6 gm/dl (2.5-4.0); Total Protein 5.7 gm/dl (6.4-8.2); Troponin I < 0.015 ng/ml (0-0.045)
--- NOTE | 2018-11-25 18:07 | History & Physical Report ---
Date of Service November 25, 2018 Assessment & Plan (1) Acute upper GI bleed: - Admit to tele - Heme + guiac and dark tarry stool - possibly from dvt ppx with aspirin s/p hip surgery? - GI to consult - has followed with [facility] in the past - NPO after midnight for possible EGD - Start on famotidine 20 mg IV as protonix is on backorder - NSS at 0000 for maintenence fluids - Supportive care - BP stable - Trend troponin at 2300 - yesterday was negative, repeat in ER negative again. - Trend hgb at 2300 and with am labs (2) S/P hip replacement: - Stable, no issues (3) Abdominal aneurysm: - Follows with Dr. Galan with yearly U/S for monitoring (4) GERD (gastroesophageal reflux disease): - Hold oral protonix, famotidine as above. - Continue tums prn (5) Sciatica: (6) Osteoarthritis: (7) Degenerative disc disease, lumbar: (8) Chronic radicular lumbar pain: - Follows with pain management as an outpatient (9) Hypertension: - Hx of such, pt is not on antihypertensives currently - BP stable. (10) Gout: - Stable, no recent flares (11) BPH (benign prostatic hyperplasia): - Continue flomax (12) DVT prophylaxis: - Teds, no chemical anticoagulation with GI bleed History of Present Illness Primary Care Provider: Aakash Galan MD This is a 63 yo M with PMHx of right hip replacement surgery by Dr. Sandhu October 2018 where he was placed on DVT prophylaxis with aspirin 81 mg BID x 45 days. Other hx includes GERD, allergic rhinitis, chronic radicular lumbar pain, DDD of lumbar spine, HTN, gout, BPH, abdominal aneurysm who presents with dark tarry stools x 2 days. Pt was seen in the ER yesterday for the same complaint and Hgb = 9.7. He was placed on Protonix PO and discharged home. Today he had worsening weakness and began to feel lightheaded so PCP ordered outpatient labs- this revealed a 2g drop compared to Hgb reading yesterday. Hgb=7.6 today. Her reports intermittent nausea but no abdominal pain or vomitting. Pt denies nausea at this time and notes feeling hungry. He denies alcohol use, acidic foods, or excessive use of NSAIDS (other than the prescribed aspirin which he had been taking up until yesterday). Allergies Allergy/AdvReac Type Severity Reaction Status Date / Time OSMAR Inhibitors Allergy Intermediate Hives Verified 11/24/18 17:15 hydroxyzine Allergy Intermediate Hives Verified 11/24/18 17:15 Home Medications Home Medications Medication Instructions Recorded Confirmed Type tamsulosin 0.4 mg capsule 0.4 mg PO HS 04/16/18 11/25/18 History calcium carbonate [Tums] 3 tab PO HS PRN 10/11/18 11/25/18 History acetaminophen [Pain Reliever] 1,000 mg PO Q8 PRN 11/24/18 11/25/18 History pantoprazole [Protonix] 40 mg PO BID 10 Days #20 tab 11/24/18 11/25/18 Rx Past Med/Surg History Medical History Abdominal aneurysm (Acute) DR. GALAN MONITORS SIZE WITH ULTRASOUNDS YEARLY GERD (gastroesophageal reflux disease) Sciatica BACK INJECTIONS (PAIN CL[facility]IC) Osteoarthritis Hypertension (Chronic) Was previously medicated for, was d/c'd when pt lost insurance and PCP never re-started it. 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 Feels Safe at Home: Yes Smoking Status: Never smoker Second Hand Exposure: Yes (IN THE PAST 30 YEARS AGO) Hx Alcohol Use: No Hx Substance Use: No Review of Systems Review of Systems: Constitutional: No fever, sweats or chills, + generalized weakness Eyes: No diplopia, no worsening or blurred vision ENT: normal hearing, no trouble swallowing Respiratory: No cough, sputum, dyspnea at rest or on exertion Cardiovascular: No chest pain, tightness or palpitations Abdomen: No pain, + nausea, + dark tarry stools, no BRBPR, no vomiting, diarrhea or constipation Musculoskeletal: No joint pain, calf pain, swelling Neurologic: No weakness, numbness/tingling, or balance problems Psychiatric: No anxiety or depression Skin: No rash or itch Physical Exam Physical Exam: General: awake, alert, no apparent distress Head: Normocephalic, atraumatic ENT: PERRL, EOMI, no pharyngeal exudate, mucous membranes moist Chest: Clear to auscultation, on room air, no adventitious breath sounds Cardiac: Regular rate and rhythm, no murmur, no JVD, normal peripheral pulses, good capillary refill Abdominal: NABS x 4 quadrants, soft, nondistended, nontender to palpation, no rebound, guarding or tenderness Extremities: Normal inspection, no peripheral edema or erythema, calfs nontender to palpation Psych: Normal mood and affect Neuro: AAO x 3, strength intact bilaterally and related 5/5, no motor deficits, speech is clear, no peripheral sensory deficits Results & Data Vital Signs (Past 12 Hours) Vital Signs Temp Pulse Resp BP Pulse Ox 11/25/18 17:00 82 22 135/77 96 11/25/18 16:30 88 18 97 11/25/18 16:01 88 27 H 11/25/18 15:57 92 H 15 113/79 11/25/18 15:47 36.5 C 94 H 20 151/74 H 98 Code Status & VTE Plan Code Status Full - discussed with pt and at bedside Supervising Physician Co-Signing Physician Notes 63 y/o M HTN, gout, BPH, abdominal aneurysm - recent hip replacement where he was placed on BID ASA x 45 days. Presents with dark tarry stools x 2 days. Hb was 9.7 one day prior - now 7.6. Denies CP - has SOB and is lightheaded with exertion. OE AAO x 3 S1,2 R CTAB NT, ND No CCE P: NPO > midnight - likely for AM endoscopy - GI aware He does not currently take meds aside from Tamsulosin and Pantoprazole which we will continue. Transfusion ordered du to symptoms and relatively rapid blood loss - repeat Hb following.
[2018-11-25 19:27] LABS: Appearance Urine Clear (Clear); Bilirubin Urine Negative (Negative); Blood Urine Negative (Negative); Color Urine Yellow; Glucose Urine UA Negative (Negative); Ketones Urine Negative (Negative); Leukocyte Esterase Urine Negative (Negative); Nitrite Urine Negative (Negative); Protein Urine Negative (Negative); Specific Gravity Urine 1.019 (1.000-1.030); Urobilinogen Urine Negative (Negative)
[2018-11-25] MEDS ORDERED: ACETAMINOPHEN 500 MG TAB PO PRN (22:18)
[2018-11-25] MEDS ORDERED: ONDANSETRON INJ 2 MG/ML 2 ML VIAL IV PRN (22:18)
[2018-11-25] MEDS ORDERED: CALCIUM CARBONATE 500 MG CHEWABLE TAB PO PRN (22:18)
[2018-11-25] MEDS ORDERED: ACETAMINOPHEN 325 MG TAB PO PRN (22:18)
[2018-11-25] MEDS: FAMOTIDINE 20 MG in SYRINGE 3 ML IV SCH (23:22)
[2018-11-25] MEDS: PANTOprazole 40 MG TAB PO SCH (23:22)
[2018-11-25] MEDS: TAMSULOSIN HCL 0.4 MG CAP PO SCH (23:26)
[2018-11-26] MEDS: SODIUM CHLORIDE 0.9% 1000ML 1,000 ML IV SCH ×2 (00:13→13:32)
[2018-11-26] MEDS ORDERED: SODIUM CHLORIDE 0.9% 250 ML IV PRN (00:26)
--- NOTE | 2018-11-26 00:31 | Progress Note ---
Date of Service November 26, 2018 Received on turnover the patient was admitted for an acute upper GI bleed. Requested to monitor his hemoglobin lab trending overnight. By report, patient has already been consented for blood if needed. Received page from his bedside nurse stating that his hemoglobin measured at 2305 has trended down from 7.6 to 6.6. She stated that he remains asymptomatic. Present vitals are stable and rather good. Plan: - Will transfuse 2 units PRBCs overnight. - Discussed the above with Dr. Sandhu. Taiwo Valenzuela, PGY2 Overnight call Results & Data Vital Signs (Past 12 Hours) Vital Signs Temp Pulse Pulse Resp BP BP Pulse Ox 11/25/18 22:51 36.8 C 96 H 18 119/65 96 11/25/18 20:14 36.9 C 91 H 20 125/71 97 11/25/18 20:00 36.8 C 94 H 20 125/71 95 11/25/18 17:00 82 22 135/77 96 11/25/18 16:30 88 18 97 11/25/18 16:01 88 27 H 11/25/18 15:57 92 H 15 113/79 11/25/18 15:47 36.5 C 94 H 20 151/74 H 98
[2018-11-26 07:30] LABS: Hematocrit (blood only) 22.6 % (42-52); Hemoglobin 7.7 g/dL (14.0-18.0); Mean Corpuscular Hgb Conc 34.1 g/dL (32-36); Mean Corpuscular Volume 93.8 fL (80-100); Nucleated RBC # (auto) 0.06 K/uL (0-0); Nucleated RBC % (auto) 0.9 %; Platelet Count 169 K/uL (130-400); RDW Coefficient of Variation 15.7 % (11.5-14.5); RDW Standard Deviation 51.5 fL (36.4-46.3); Red Blood Count 2.41 M/uL (4.7-6.1); White Blood Count 7.37 K/uL (4.8-10.8)
[2018-11-26 08:01] LABS: Albumin Level 2.9 gm/dl (3.4-5.0); BUN Creatinine Ratio 24.9 (10-20); Calcium 8.1 mg/dl (8.5-10.1); Creatinine Clr Calc Pharmacy 105.6 ml/min; Est GFR (African American) 103.6; Est GFR (Non-African American) 89.4; Potassium 3.7 mmol/L (3.5-5.1)
[2018-11-26 08:03] LABS: Albumin Globulin Ratio 1.3 (0.9-2); Bilirubin,Total 0.4 mg/dl (0.2-1); Globulin 2.2 gm/dl (2.5-4.0); Total Protein 5.1 gm/dl (6.4-8.2)
[2018-11-26] MEDS: FAMOTIDINE 20 MG in SYRINGE 3 ML IV SCH (08:14)
[2018-11-26] MEDS: PANTOprazole 40 MG TAB PO SCH (09:07)
--- NOTE | 2018-11-26 09:21 | Gastrointestinal Consultation ---
Date of Consultation November 26, 2018 Assessment & Plan (1) Anemia: (2) Melena: Pt is a 63 y/o male who presented w melena and symptomatic anemia. Hx of R THR, on ASA 81mg BID for DVT prophylaxis. He denies any other anticoagulant, NSAIDs, tobacco, ETOH. Does have hx of heartburn symptoms, taking TUMs on PRN basis. - Keep NPO - EGD eval by Dr. Jessica - PPI bolus received, start PPI gtt - GI to give further recs after EGD is done - Monitor H/H and transfuse prn. Supervising Physician Co-Signing Physician Notes I have personally seen and examined the patient with ANAM Moreland. Her note reflects my exam and findings. I agree with her impression and plan. He also has been taking NSAIDS for his hip pain; Toradol and Meloxicam (though he did not realize they were NSAIDS). Clinical presentation most c/w ulcer disease. Will arrange EGD. Gatito Jessica M.D. History of Present Illness Reason for Consultation: Gi bleed Requesting Physician: Dr. Fatuma Mcmahon Attending Physician: Dr. Gatito Jessica History of Present Illness Pt is a 63 y/o male w recent R hip replacement on 10/31 and was on ASA 81mg BID for DVT prophylaxis. He presented to ED w c/o tarry stools x 2 days. Initially sent home w Protonix PO, Hgb was around 9 (baseline 14). But then he continues to have tarry stools w weakness, light headedness and went to PCP. Repeat blood ct showed drop in Hgb around 7 and he was sent to ED again. He's admitted for suspected UGI bleed. Made NPO, received PPI bolus. He also had 2U PRBC transfusion, blood ct was 6.6 at lowest, after transfusion, it went up to 7.7. H e's still passing tarry stools but frequency had decreased. Pt denies any CP, SOB, abd pain, n/v. He notes he's been having heartburn symptoms and takes TUMs on PRN basis. He denies any prior hx of GI surgery, or ulcers. He denies taking NSAIDs or other anticoagulant. He denies tobacco, ETOH uses. Mother w hx of intraabdominal metastatic cancer but unsure what primary. He did have a colonoscopy last year, had serrated adenoma polyps, & diverticulosis told to have repeat in 5 yrs time. Allergies Allergy/AdvReac Type Severity Reaction Status Date / Time OSMAR Inhibitors Allergy Intermediate Hives Verified 11/26/18 10:14 hydroxyzine Allergy Intermediate Hives Verified 11/26/18 10:14 Home Medications Home Medications Medication Instructions Recorded Confirmed Type tamsulosin 0.4 mg capsule 0.4 mg PO HS 04/16/18 11/25/18 History calcium carbonate [Tums] 3 tab PO HS PRN 10/11/18 11/25/18 History acetaminophen [Pain Reliever] 1,000 mg PO Q8 PRN 11/24/18 11/25/18 History pantoprazole [Protonix] 40 mg PO BID 10 Days #20 tab 11/24/18 11/25/18 Rx Patient History Medical History Acute upper GI bleed (Acute) Abdominal aneurysm (Acute) DR. GALAN MONITORS SIZE WITH ULTRASOUNDS YEARLY GERD (gastroesophageal reflux disease) Sciatica BACK INJECTIONS ([facility]IC) Osteoarthritis Chronic radicular lumbar pain (Chronic) Degenerative disc disease, lumbar (Chronic) Hypertension (Chronic) Was previously medicated for, was d/c'd when pt lost insurance and PCP never re-started it. 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 Required: No Beliefs That Will Affect Care: None marital status: Current Living Situation: Spouse current occupational status: employed 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 Feels Safe at Home: Yes Safety Concerns: Feels Safe At This Time Smoking Status: Never smoker Do You Dip or Chew Tobacco: No Second Hand Exposure: Yes Tobacco Cessation Education Requested by Patient: No Hx Alcohol Use: No Hx Substance Use: No Review of Systems Review of Systems: All systems reviewed & are unremarkable except as noted in HPI & below Physical Exam Constitutional: WD/WN, vitals as above well groomed, cooperative and comfortable Eyes: PERRL, conjunctivae normal, anicteric sclerae ENMT: external ear and nose normal, oropharynx normal Respiratory: normal respiratory effort, lungs clear to auscultation Cardiovascular: RRR, no murmur, no edema Gastrointestinal (Abdomen): normal bowel sounds, soft, nontender, no hepatosplenomegaly Skin: no rashes, warm and dry no jaundice Neurologic: Motor/Sensory: no asterixis Psychiatric: A+Ox3, euthymic affect Lymphatic: no lymphedema Results & Data Vital Signs (Past 12 Hours) Vital Signs Temp Pulse Pulse Resp BP BP Pulse Ox 11/26/18 08:00 78 11/26/18 06:19 37 C 64 16 122/75 94 11/26/18 06:07 36.9 C 86 122/75 97 11/26/18 05:07 74 99/65 L 93 11/26/18 04:44 79 97/65 L 93 11/26/18 04:22 36.8 C 82 109/59 L 96 11/26/18 04:04 36.8 C 84 20 107/64 96 11/26/18 03:55 36.8 C 84 20 107/64 96 11/26/18 03:38 37.3 C 87 16 95/56 L 95 11/26/18 02:08 37.3 C 85 16 95/56 L 95 11/26/18 01:37 37.0 C 87 18 111/61 96 11/26/18 01:23 36.8 C 91 H 97/60 L 96 11/26/18 01:02 37 C 83 20 109/63 95 11/25/18 22:51 36.8 C 96 H 18 119/65 96 Laboratory Results Laboratory Results - last 72 hr 11/25/18 11/25/18 11/25/18 16:25 16:25 16:26 WBC 8.44 RBC 2.31 L Hgb 7.6 L Hct 22.3 L MCV 96.5 MCH 32.9 MCHC 34.1 RDW Std Deviation 50.8 H RDW Coeff of Hang 15.0 H Plt Count 218 MPV 9.0 Immature Gran % (Auto) 1.7 Neut % (Auto) 65.9 Lymph % (Auto) 18.1 [place] % (Auto) 11.6 Eos % (Auto) 2.3 Baso % (Auto) 0.4 Immature Gran # (Auto) 0.14 H Neut # (Auto) 5.57 Lymph # (Auto) 1.53 [place] # (Auto) 0.98 H Eos # (Auto) 0.19 Baso # (Auto) 0.03 Absolute Nucleated RBC 0.08 H Nucleated RBC % (auto) 1.0 Polychromasia 1+ PT 11.0 INR 1.1 APTT 21.9 PTT Ratio 0.8 Sodium Potassium Chloride Carbon Dioxide Anion Gap BUN Creatinine Est Cr Clr Drug Dosing Est GFR ( Amer) Est GFR (Non-Af Amer) BUN/Creatinine Ratio Glucose Calcium Magnesium Total Bilirubin AST ALT Alkaline Phosphatase Troponin I Total Protein Albumin Globulin Albumin/Globulin Ratio Lipase TSH Urine Color Urine Appearance Urine pH Ur Specific [place] Urine Protein Urine Glucose (UA) Urine Ketones Urine Blood Urine Nitrite Urine Bilirubin Urine Urobilinogen Ur Leukocyte Esterase Blood Type O Positive Antibody Screen NEGATIVE Crossmatch See Detail 11/25/18 11/25/18 11/25/18 16:26 18:44 23:05 WBC RBC Hgb 6.6 L* Hct MCV MCH MCHC RDW Std Deviation RDW Coeff of Hang Plt Count MPV Immature Gran % (Auto) Neut % (Auto) Lymph % (Auto) [place] % (Auto) Eos % (Auto) Baso % (Auto) Immature Gran # (Auto) Neut # (Auto) Lymph # (Auto) [place] # (Auto) Eos # (Auto) Baso # (Auto) Absolute Nucleated RBC Nucleated RBC % (auto) Polychromasia PT INR APTT PTT Ratio Sodium 139 Potassium 3.8 Chloride 108 H Carbon Dioxide 24 Anion Gap 7.0 BUN 28 H Creatinine 1.01 Est Cr Clr Drug Dosing 94.6 Est GFR ( Amer) 91.3 Est GFR (Non-Af Amer) 78.8 BUN/Creatinine Ratio 27.8 H Glucose 94 Calcium 8.3 L Magnesium 2.1 Total Bilirubin 0.2 AST 15 ALT 24 Alkaline Phosphatase 82 Troponin I < 0.015 Total Protein 5.7 L Albumin 3.1 L Globulin 2.6 Albumin/Globulin Ratio 1.2 Lipase 158 TSH 1.960 Urine Color Yellow Urine Appearance Clear Urine pH 5.0 Ur Specific [place] 1.019 Urine Protein Negative Urine Glucose (UA) Negative Urine Ketones Negative Urine Blood Negative Urine Nitrite Negative Urine Bilirubin Negative Urine Urobilinogen Negative Ur Leukocyte Esterase Negative Blood Type Antibody Screen Crossmatch 11/25/18 11/26/18 11/26/18 23:05 06:57 06:57 WBC 7.37 RBC 2.41 L Hgb 7.7 L Hct 22.6 L MCV 93.8 MCH 32.0 MCHC 34.1 RDW Std Deviation 51.5 H RDW Coeff of Hang 15.7 H Plt Count 169 MPV 9.0 Immature Gran % (Auto) Neut % (Auto) Lymph % (Auto) [place] % (Auto) Eos % (Auto) Baso % (Auto) Immature Gran # (Auto) Neut # (Auto) Lymph # (Auto) [place] # (Auto) Eos # (Auto) Baso # (Auto) Absolute Nucleated RBC 0.06 H Nucleated RBC % (auto) 0.9 Polychromasia PT INR APTT PTT Ratio Sodium 141 Potassium 3.7 Chloride 109 H Carbon Dioxide 25 Anion Gap 7.0 BUN 23 H Creatinine 0.91 Est Cr Clr Drug Dosing 105.6 Est GFR ( Amer) 103.6 Est GFR (Non-Af Amer) 89.4 BUN/Creatinine Ratio 24.9 H Glucose 91 Calcium 8.1 L Magnesium Total Bilirubin 0.4 AST 14 L ALT 22 Alkaline Phosphatase 65 Troponin I < 0.015 Total Protein 5.1 L Albumin 2.9 L Globulin 2.2 L Albumin/Globulin Ratio 1.3 Lipase TSH Urine Color Urine Appearance Urine pH Ur Specific [place] Urine Protein Urine Glucose (UA) Urine Ketones Urine Blood Urine Nitrite Urine Bilirubin Urine Urobilinogen Ur Leukocyte Esterase Blood Type Antibody Screen Crossmatch (1) Anemia Anemia type: unspecified type Qualified Code(s): D64.9 - Anemia, unspecified
[2018-11-26] MEDS ORDERED: PANTOprazole 40 MG in DEXTROSE 5% 100 ML IV SCH (09:30)
--- NOTE | 2018-11-26 10:12 | Anesthesiology Consultation ---
Date of Service November 26, 2018 Assessment & Plan (1) Encounter for pre-operative examination: Chart Review Chart Review: Acceptable Risk for Surgery and Patient NOT seen in Pre Admission Testing Consults Requested none History Surgery Operation Date: 11/26/18 08:30 Proposed Procedures p Esophagogastroduodenoscopy Dr Jessica - Gatito Jessica Height/Weight Height: 5 ft 11 in Weight: 111.7 kg Allergies Allergy/AdvReac Type Severity Reaction Status Date / Time OSMAR Inhibitors Allergy Intermediate Hives Verified 11/24/18 17:15 hydroxyzine Allergy Intermediate Hives Verified 11/24/18 17:15 Medications Home Medications Medication Instructions Recorded Confirmed Last Taken tamsulosin 0.4 mg capsule 0.4 mg PO HS 04/16/18 11/25/18 11/23/18 calcium carbonate [Tums] 3 tab PO HS PRN 10/11/18 11/25/18 11/23/18 acetaminophen [Pain Reliever] 1,000 mg PO Q8 PRN 11/24/18 11/25/18 11/24/18 pantoprazole [Protonix] 40 mg PO BID 10 Days #20 tab 11/24/18 11/25/18 Unknown Active Medications Generic Name Dose Route Start Last Admin Trade Name Freq PRN Reason Stop Dose Admin Sodium Chloride 1,000 mls @ 80 mls/hr 11/26/18 00:00 11/26/18 09:50 Nss 1000ml IV 12/26/18 00:00 0 mls/hr .[id number] GLENNY Infusion Tamsulosin HCl 0.4 mg 11/25/18 22:45 11/25/18 23:26 Flomax PO 12/25/18 22:44 Not Given HS [facility] Past Medical History Medical History Acute upper GI bleed (Acute) Abdominal aneurysm (Acute) DR. GALAN MONITORS SIZE WITH ULTRASOUNDS YEARLY GERD (gastroesophageal reflux disease) Sciatica BACK INJECTIONS ([facility]) Osteoarthritis Chronic radicular lumbar pain (Chronic) Degenerative disc disease, lumbar (Chronic) Hypertension (Chronic) Was previously medicated for, was d/c'd when pt lost insurance and PCP never re-started it. Gout (Chronic) BPH (benign prostatic hyperplasia) (Chronic) NOCTURIA Adenomatous polyp of colon (Chronic) Past Family History Family History Father Family history of diabetes mellitus Past Surgical History Surgical History S/P hip replacement Hx of cholecystectomy (Acute) History of tooth extraction History of colonoscopy History of tonsillectomy and adenoidectomy (Chronic) Social History Smoking Status: Never smoker Do You Dip or Chew Tobacco: No Hx Alcohol Use: No Hx Substance Use: No substance use type: does not use Physical Exam Vital Signs Last Vital Signs Temp 37 C 11/26/18 06:19 Pulse 78 11/26/18 08:00 Resp 16 11/26/18 06:19 BP 122/75 11/26/18 06:19 Pulse Ox 94 11/26/18 06:19 Testing Laboratory Results 11/26/18 06:57 11/26/18 06:57 Blood Type O Positive 11/25/18 16:25 Antibody Screen NEGATIVE 11/25/18 16:25 PT 11.0 Seconds (9.0-12.0) 11/25/18 16:26 INR 1.1 (0.9-1.1) 11/25/18 16:26 APTT 21.9 Seconds (21.0-31.0) 11/25/18 16:26 Urine Color Yellow 11/25/18 18:44 Urine Appearance Clear (Clear) 11/25/18 18:44 Urine pH 5.0 (4.5-7.5) 11/25/18 18:44 Ur Specific [place] 1.019 (1.000-1.030) 11/25/18 18:44 Urine Protein Negative (Negative) 11/25/18 18:44 Urine Glucose (UA) Negative (Negative) 11/25/18 18:44 Urine Ketones Negative (Negative) 11/25/18 18:44 Urine Nitrite Negative (Negative) 11/25/18 18:44 Ur Leukocyte Esterase Negative (Negative) 11/25/18 18:44
[2018-11-26] MEDS ORDERED: ePHEDrine sulfate 50 MG/ML AMP IV PRN (10:19)
[2018-11-26] MEDS ORDERED: ATROPINE SULFATE 0.1 MG/ML 10ML SYR IV PRN (10:19)
--- NOTE | 2018-11-26 10:36 | History & Physical Report ---
Date of Service November 26, 2018 Assessment & Plan (1) Melena: stable for EGD History of Present Illness Chief Complaint: melena Primary Care Provider: Aakash Tao MD pt with dark stools and hx of ASA use. Allergies Allergy/AdvReac Type Severity Reaction Status Date / Time OSMAR Inhibitors Allergy Intermediate Hives Verified 11/26/18 10:14 hydroxyzine Allergy Intermediate Hives Verified 11/26/18 10:14 Home Medications Home Medications Medication Instructions Recorded Confirmed Type tamsulosin 0.4 mg capsule 0.4 mg PO HS 04/16/18 11/25/18 History calcium carbonate [Tums] 3 tab PO HS PRN 10/11/18 11/25/18 History acetaminophen [Pain Reliever] 1,000 mg PO Q8 PRN 11/24/18 11/25/18 History pantoprazole [Protonix] 40 mg PO BID 10 Days #20 tab 11/24/18 11/25/18 Rx Past Med/Surg History Medical History Acute upper GI bleed (Acute) Abdominal aneurysm (Acute) DR. TAO MONITORS SIZE WITH ULTRASOUNDS YEARLY GERD (gastroesophageal reflux disease) Sciatica BACK INJECTIONS ([facility]) Osteoarthritis Chronic radicular lumbar pain (Chronic) Degenerative disc disease, lumbar (Chronic) Hypertension (Chronic) Was previously medicated for, was d/c'd when pt lost insurance and PCP never re-started it. Gout (Chronic) BPH (benign prostatic hyperplasia) (Chronic) NOCTURIA Adenomatous polyp of colon (Chronic) Surgical History S/P hip replacement Hx of cholecystectomy (Acute) History of tooth extraction History of colonoscopy History of tonsillectomy and adenoidectomy (Chronic) Family History Father Family history of diabetes mellitus Social History Preferred Language: Irish Communication Ability: Effective Visual Impairment: Limited Hearing Ability: Normal Director Geothermal Operations Required: No Beliefs That Will Affect Care: None marital status: Current Living Situation: Spouse current occupational status: employed 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 Feels Safe at Home: Yes Safety Concerns: Feels Safe At This Time Smoking Status: Never smoker Do You Dip or Chew Tobacco: No Second Hand Exposure: Yes Tobacco Cessation Education Requested by Patient: No Hx Alcohol Use: No Hx Substance Use: No Physical Exam Vital Signs (Past 24 Hours): Last Vital Signs Temp 36.6 C 11/26/18 10:04 Pulse 80 11/26/18 10:04 Resp 20 11/26/18 10:04 BP 138/77 11/26/18 10:04 Pulse Ox 97 11/26/18 10:04 Constitutional: WD/WN, vitals as above Respiratory: normal respiratory effort, lungs clear to auscultation Cardiovascular: RRR, no murmur, no edema Gastrointestinal (Abdomen): normal bowel sounds, soft, nontender, no hepatosplenomegaly
[2018-11-26] MEDS ORDERED: PROPOFOL IV EMULSION 10 MG/ML 20 ML VIAL IV ONE (10:39)
[2018-11-26] MEDS ORDERED: LIDOCAINE HCL 2% 2 ML VIAL/AMP(20MG/ML) INFIL ONE (10:39)
[2018-11-26] MEDS: PANTOprazole 40 MG in SYRINGE 0 ML IV SCH ×3 (12:02→21:42)
--- NOTE | 2018-11-26 12:20 | GI REPORT ---
Patient Name: Eric Maier Procedure Date: 11/26/2018 10:39 AM Date of : 1955 Admit Type: Inpatient Age: 63 Gender: Male Attending MD: Gatito Jessica MD Procedure: Upper GI endoscopy Providers: Gatito Jessica MD Referring MD: Fatuma Carbone Md Indications: Melena Medicines: See the Anesthesia note for documentation of the administered medications Complications: No immediate complications. Estimated Blood Loss: Estimated blood loss was minimal. Procedure: Pre-Anesthesia Assessment: - Prior to the procedure, a History and Physical was performed, and patient medications, allergies and sensitivities were reviewed. The patient's tolerance of previous anesthesia was reviewed. - The risks and benefits of the procedure and the sedation options and risks were discussed with the patient. All questions were answered and informed consent was obtained. - Patient identification and proposed procedure were verified prior to the procedure by the physician and the nurse. The procedure was verified in the pre-procedure area. - Pre-procedure physical examination revealed no contraindications to sedation. - After reviewing the risks and benefits, the patient was deemed in satisfactory condition to undergo the procedure. After obtaining informed consent, the endoscope was passed under direct vision. Throughout the procedure, the patient's blood pressure, pulse, and oxygen saturations were monitored continuously. The Endoscope was introduced through the mouth, and advanced to the third part of duodenum. The upper GI endoscopy was accomplished without difficulty. The patient tolerated the procedure well. Findings: Albright-colored mucosa was present. No other visible abnormalities were present. Biopsies were taken with a cold forceps for histology. Verification of patient identification for the specimen was done by the physician and nurse using the patient's name and medical record number. Estimated blood loss was minimal. Few non-bleeding cratered gastric ulcers with no stigmata of bleeding were found in the gastric antrum. Biopsies were taken with a cold forceps for Helicobacter pylori testing. Verification of patient identification for the specimen was done by the physician and nurse using the patient's name and medical record number. Estimated blood loss was minimal. One non-bleeding cratered duodenal ulcer with no stigmata of bleeding was found in the first portion of the duodenum. The cardia and gastric fundus were normal on retroflexion. Impression: - Albright-colored mucosa suspicious for short-segment Yang's esophagus. Biopsied. - Non-bleeding gastric ulcers with no stigmata of bleeding. Biopsied. - One non-bleeding duodenal ulcer with no stigmata of bleeding. Recommendation: - Await pathology results. - BID PPI for 8 weeks than daily. - [facility] care. Gatito Jessica M.D. Gatito Jessica MD 11/26/2018 12:19:35 PM This report has been signed electronically. Note Initiated On: 11/26/2018 10:39 AM Number of Addenda: 0 I attest to the content of the Intraoperative Record and orders documented therein, exceptions below {[id number]}
--- NOTE | 2018-11-26 13:15 | Anesthesiology Progress Note ---
Date of Service November 26, 2018 Anesthesia Post Procedure Vital Signs Vital Signs: Temp Pulse Pulse Resp BP BP Pulse Ox 11/26/18 11:30 74 18 120/71 95 11/26/18 11:15 78 18 107/66 95 11/26/18 11:00 80 16 117/55 L 92 11/26/18 10:04 36.6 C 80 20 138/77 97 11/26/18 08:00 78 11/26/18 06:19 37 C 64 16 122/75 94 11/26/18 06:07 36.9 C 86 122/75 97 11/26/18 05:07 74 99/65 L 93 11/26/18 04:44 79 97/65 L 93 11/26/18 04:22 36.8 C 82 109/59 L 96 11/26/18 04:04 36.8 C 84 20 107/64 96 11/26/18 03:55 36.8 C 84 20 107/64 96 11/26/18 03:38 37.3 C 87 16 95/56 L 95 11/26/18 02:08 37.3 C 85 16 95/56 L 95 11/26/18 01:37 37.0 C 87 18 111/61 96 11/26/18 01:23 36.8 C 91 H 97/60 L 96 11/26/18 01:02 37 C 83 20 109/63 95 11/25/18 22:51 36.8 C 96 H 18 119/65 96 11/25/18 20:14 36.9 C 91 H 20 125/71 97 11/25/18 20:00 36.8 C 94 H 20 125/71 95 11/25/18 17:00 82 22 135/77 96 11/25/18 16:30 88 18 97 11/25/18 16:01 88 27 H 11/25/18 15:57 92 H 15 113/79 11/25/18 15:47 36.5 C 94 H 20 151/74 H 98 Transfer of Care Handoff Completed per policy Notes Mental Status: alert / awake / arousable Patient Amnestic to Procedure: Yes Nausea / Vomiting: adequately controlled Pain: adequately controlled Airway Patency, RR, SpO2: stable & adequate BP & HR: stable & adequate Hydration State: stable & adequate Anesthetic Complications: no major complications apparent and Pt Satisfied with anesthetic care
--- NOTE | 2018-11-26 20:12 | Hospitalist Progress Note ---
Date of Service November 26, 2018 Assessment & Plan (1) Acute upper GI bleed: Presented with melena and lightheadedness in the setting of taking ASA bid x 4 weeks s/p right JEAN. Was taking chronic Mobic prior to that. Hgb dropped and was transfused PRBCs 2 units upon admission EGD with nonbleeding gastric and duodenal ulcers, possible short segment Yang's esophagus, biopsies taken Passing some small amounts melena today likely residual -continue Protonix 40mg IV bid and convert to po tomorrow bid x 8 weeks -avoid all NSAIDs, ASA -follow CBC q12 now and transfuse if hgb<7.5 (2) Acute blood loss anemia: Hgb dropped from 9->7->6 on admission Now improved s/p PRBCs Secondary to PUD/UGI Bleed -transfuse as above as needed Follow CBC (3) S/P hip replacement: - Stable, no issues Ambulating well -will call Dr. Sandhu tomorrow and see if wants pt on 2 more weeks of Lovenox SQ or if can be done with DVT prophylaxis (4) Abdominal aneurysm: - Follows with Dr. Tao with yearly U/S for monitoring-was told was stable (5) GERD (gastroesophageal reflux disease): -continue Protonix IV bid for now and then convert to po bid tomorrow for 8 weeks (6) Osteoarthritis: avoid NSAIDs -can take acetaminophen prn (7) Chronic radicular lumbar pain: - Follows with pain management as an outpatient (8) Hypertension: - Hx of such, pt is not on antihypertensives currently - BP stable. (9) Gout: - Stable, no recent flares (10) BPH (benign prostatic hyperplasia): - Continue flomax (11) DVT prophylaxis: - Teds, no chemical anticoagulation with GI bleed Dispo-remain on tele overnight Possible dc tomorrow if Hgb stable and no further GI bleeding Subjective Pt denies epigastric pain but reports he has been taking TUMS nightly for years due to acid reflux. Had some small amounts of black stool today and also having black "slime" come out with passing flatus-is wearing a brief because of this. Denies chest pain or SOB. He denies lightheadedness now but did have some earlier today. He was able to ambulate 2 laps around the RN station. Nabor po Tele with NSR, rates 70s-80s, PVCs Review of Systems Review of Systems: All systems reviewed & are unremarkable except as noted in HPI & below Physical Exam Constitutional: WD/WN, vitals as above Eyes: PERRL, conjunctivae normal, anicteric sclerae ENMT: external ear and nose normal, oropharynx normal Neck: trachea midline, no thyromegaly Respiratory: normal respiratory effort, lungs clear to auscultation Cardiovascular: Rate/Rhythm: regular rate and regular rhythm Heart Sounds: no murmur Extremities: + edema (trace pitting edema right leg) Gastrointestinal (Abdomen): normal bowel sounds, soft, nontender, no hepatosplenomegaly Musculoskeletal: Extremities: + extremities abnormal to inspection (right hip with incisional scar well healed), no cyanosis and no clubbing Skin: no rashes, warm and dry Neurologic: moves all extremities and awake; no focal motor deficits Psychiatric: A+Ox3, euthymic affect Results & Data Vital Signs (Past 12 Hours) Vital Signs Temp Pulse Pulse Resp BP Pulse Ox 11/26/18 19:01 36.8 C 76 20 111/67 97 11/26/18 16:00 75 11/26/18 15:52 36.5 C 75 20 103/66 98 11/26/18 11:30 74 18 120/71 95 11/26/18 11:15 78 18 107/66 95 11/26/18 11:00 80 16 117/55 L 92 11/26/18 10:04 36.6 C 80 20 138/77 97 Laboratory Results 11/26/18 11/26/18 11/25/18 Range/Units 06:57 06:57 23:05 WBC 7.37 (4.8-10.8) K/uL RBC 2.41 L (4.7-6.1) M/uL Hgb 7.7 L (14.0-18.0) g/dL Hct 22.6 L (42-52) % MCV 93.8 (80-100) fL MCH 32.0 (25-34) pg MCHC 34.1 (32-36) g/dL RDW Std Deviation 51.5 H (36.4-46.3) fL RDW Coeff of Hang 15.7 H (11.5-14.5) % Plt Count 169 (130-400) K/uL MPV 9.0 (7.4-10.4) fL Absolute Nucleated RBC 0.06 H (0-0) K/uL Nucleated RBC % (auto) 0.9 % Sodium 141 (136-145) mmol/L Potassium 3.7 (3.5-5.1) mmol/L Chloride 109 H (98-107) mmol/L Carbon Dioxide 25 (21-32) mmol/L Anion Gap 7.0 (3-11) BUN 23 H (7-18) mg/dl Creatinine 0.91 (0.6-1.4) mg/dl Est Cr Clr Drug Dosing 105.6 ml/min Est GFR ( Amer) 103.6 Est GFR (Non-Af Amer) 89.4 BUN/Creatinine Ratio 24.9 H (10-20) Glucose 91 (70-99) mg/dl Calcium 8.1 L (8.5-10.1) mg/dl Total Bilirubin 0.4 (0.2-1) mg/dl AST 14 L (15-37) U/L ALT 22 (12-78) U/L Alkaline Phosphatase 65 (45-117) U/L Troponin I < 0.015 (0-0.045) ng/ml Total Protein 5.1 L (6.4-8.2) gm/dl Albumin 2.9 L (3.4-5.0) gm/dl Globulin 2.2 L (2.5-4.0) gm/dl Albumin/Globulin Ratio 1.3 (0.9-2) Blood Type Antibody Screen Crossmatch 11/25/18 11/25/18 Range/Units 23:05 16:25 WBC (4.8-10.8) K/uL RBC (4.7-6.1) M/uL Hgb 6.6 L* (14.0-18.0) g/dL Hct (42-52) % MCV (80-100) fL MCH (25-34) pg MCHC (32-36) g/dL RDW Std Deviation (36.4-46.3) fL RDW Coeff of Hang (11.5-14.5) % Plt Count (130-400) K/uL MPV (7.4-10.4) fL Absolute Nucleated RBC (0-0) K/uL Nucleated RBC % (auto) % Sodium (136-145) mmol/L Potassium (3.5-5.1) mmol/L Chloride (98-107) mmol/L Carbon Dioxide (21-32) mmol/L Anion Gap (3-11) BUN (7-18) mg/dl Creatinine (0.6-1.4) mg/dl Est Cr Clr Drug Dosing ml/min Est GFR ( Amer) Est GFR (Non-Af Amer) BUN/Creatinine Ratio (10-20) Glucose (70-99) mg/dl Calcium (8.5-10.1) mg/dl Total Bilirubin (0.2-1) mg/dl AST (15-37) U/L ALT (12-78) U/L Alkaline Phosphatase (45-117) U/L Troponin I (0-0.045) ng/ml Total Protein (6.4-8.2) gm/dl Albumin (3.4-5.0) gm/dl Globulin (2.5-4.0) gm/dl Albumin/Globulin Ratio (0.9-2) Blood Type O Positive Antibody Screen NEGATIVE Crossmatch See Detail
[2018-11-26 20:49] LABS: Hematocrit (blood only) 21.8 % (42-52); Hemoglobin 7.8 g/dL (14.0-18.0); Mean Corpuscular Hgb Conc 35.8 g/dL (32-36); Mean Corpuscular Volume 92.8 fL (80-100); Mean Platelet Volume 8.6 fL (7.4-10.4); Nucleated RBC # (auto) 0.06 K/uL (0-0); Platelet Count 182 K/uL (130-400); RDW Coefficient of Variation 16.8 % (11.5-14.5); RDW Standard Deviation 54.4 fL (36.4-46.3); Red Blood Count 2.35 M/uL (4.7-6.1); White Blood Count 6.57 K/uL (4.8-10.8)
[2018-11-26] MEDS: TAMSULOSIN HCL 0.4 MG CAP PO SCH (21:41)
[2018-11-27 06:04] LABS: Hematocrit (blood only) 24.9 % (42-52); Hemoglobin 8.4 g/dL (14.0-18.0); Mean Corpuscular Hgb Conc 33.7 g/dL (32-36); Mean Corpuscular Volume 95.8 fL (80-100); Mean Platelet Volume 8.9 fL (7.4-10.4); Nucleated RBC # (auto) 0.04 K/uL (0-0); Nucleated RBC % (auto) 0.7 %; Platelet Count 188 K/uL (130-400); RDW Coefficient of Variation 17.1 % (11.5-14.5); RDW Standard Deviation 55.5 fL (36.4-46.3); White Blood Count 6.01 K/uL (4.8-10.8)
[2018-11-27 06:42] LABS: Albumin Level 3.1 gm/dl (3.4-5.0); Calcium 8.5 mg/dl (8.5-10.1); Creatinine Clr Calc Pharmacy 93.1 ml/min; Est GFR (African American) 90.2; Est GFR (Non-African American) 77.9; Potassium 3.8 mmol/L (3.5-5.1)
[2018-11-27 06:45] LABS: Albumin Globulin Ratio 1.2 (0.9-2); Bilirubin,Total 0.4 mg/dl (0.2-1); Globulin 2.6 gm/dl (2.5-4.0); Total Protein 5.7 gm/dl (6.4-8.2)
[2018-11-27 07:14] VITALS: O2SAT 97
[2018-11-27] MEDS: PANTOprazole 40 MG in SYRINGE 0 ML IV SCH (07:37)
--- NOTE | 2018-11-27 09:04 | Gastroenterology Progress Note ---
Date of Service November 27, 2018 Assessment & Plan (1) Melena: (2) Acute blood loss anemia: Pt is a 63 y/o male admitted for symptomatic anemia and melena, treated with 2u PRBC transfusion, H/H responding. He was taking Meloxicam for R knee pain, and high dose ASA s/p R THR. EGD on 11/26 showed salmon colored mucosa suspicious for Yang's esophagus, non bleeding ulcers in stomach and duodenum. Overnight had heartburn w chest tightness symptoms but normal EKG and first set of Troponin. No abd pain, n/v, stools are black but not sticky anymore and H/H continue to improve - Diet as tolerated, avoid spicy, tomato based foods, limit ETOh, caffeinated beverages, citrus fruits - Protonix 40mg IV BID; may convert to PO form upon DC on BID dose x 8 weeks, then once daily - Repeat EGD in 8 week's time to eval for ulcer healing - Per primary team, will repeat another set of Troponin at noon before DC home if normal. - Gi to sign off, pls recall as needed. Supervising Physician Co-Signing Physician Notes I have personally seen and examined the patient with ANAM Moreland. Her note reflects my exam and findings. I agree with her impression and plan. Doing well with stable H/H. Will arrange out patient f/u EGD to confirm healing of ulcers. Patient needs to stay on BID PPI for about 8 weeks than daily. Gatito Jessica M.D. Subjective Pt had an episode of what he described of chest tightness likely related to heartburn last night. EKG and Troponin normal. Awaiting another set of Troponin at noon He otherwise is doing well, H/H improving. No abd pain, n/v. Tolerating diet well. He's having BMs, stools are more formed, not sticky though still black in color. Review of Systems Review of Systems: All systems reviewed & are unremarkable except as noted in HPI & below Physical Exam Constitutional: WD/WN, vitals as above well groomed, cooperative and comfortable Eyes: PERRL, conjunctivae normal, anicteric sclerae ENMT: external ear and nose normal, oropharynx normal Respiratory: normal respiratory effort, lungs clear to auscultation Cardiovascular: RRR, no murmur, no edema Gastrointestinal (Abdomen): normal bowel sounds, soft, nontender, no hepatosplenomegaly Skin: no rashes, warm and dry no jaundice Neurologic: Motor/Sensory: no asterixis Psychiatric: A+Ox3, euthymic affect Lymphatic: no lymphedema Results & Data Vital Signs (Past 12 Hours) Vital Signs Temp Pulse Resp BP Pulse Ox 11/27/18 07:12 36.8 C 84 18 134/70 97 11/27/18 04:22 36.7 C 78 18 123/67 96 11/26/18 23:10 36.9 C 75 17 98/69 L 96 Laboratory Results - last 72 hr 11/25/18 11/25/18 11/25/18 16:25 16:25 16:26 WBC 8.44 RBC 2.31 L Hgb 7.6 L Hct 22.3 L MCV 96.5 MCH 32.9 MCHC 34.1 RDW Std Deviation 50.8 H RDW Coeff of Hang 15.0 H Plt Count 218 MPV 9.0 Immature Gran % (Auto) 1.7 Neut % (Auto) 65.9 Lymph % (Auto) 18.1 Saunders % (Auto) 11.6 Eos % (Auto) 2.3 Baso % (Auto) 0.4 Immature Gran # (Auto) 0.14 H Neut # (Auto) 5.57 Lymph # (Auto) 1.53 Saunders # (Auto) 0.98 H Eos # (Auto) 0.19 Baso # (Auto) 0.03 Absolute Nucleated RBC 0.08 H Nucleated RBC % (auto) 1.0 Polychromasia 1+ PT 11.0 INR 1.1 APTT 21.9 PTT Ratio 0.8 Sodium Potassium Chloride Carbon Dioxide Anion Gap BUN Creatinine Est Cr Clr Drug Dosing Est GFR ( Amer) Est GFR (Non-Af Amer) BUN/Creatinine Ratio Glucose Calcium Magnesium Total Bilirubin AST ALT Alkaline Phosphatase Troponin I Total Protein Albumin Globulin Albumin/Globulin Ratio Lipase TSH Urine Color Urine Appearance Urine pH Ur Specific [place] Urine Protein Urine Glucose (UA) Urine Ketones Urine Blood Urine Nitrite Urine Bilirubin Urine Urobilinogen Ur Leukocyte Esterase Blood Type O Positive Antibody Screen NEGATIVE Crossmatch See Detail 11/25/18 11/25/18 11/25/18 16:26 18:44 23:05 WBC RBC Hgb 6.6 L* Hct MCV MCH MCHC RDW Std Deviation RDW Coeff of Hang Plt Count MPV Immature Gran % (Auto) Neut % (Auto) Lymph % (Auto) Saunders % (Auto) Eos % (Auto) Baso % (Auto) Immature Gran # (Auto) Neut # (Auto) Lymph # (Auto) Saunders # (Auto) Eos # (Auto) Baso # (Auto) Absolute Nucleated RBC Nucleated RBC % (auto) Polychromasia PT INR APTT PTT Ratio Sodium 139 Potassium 3.8 Chloride 108 H Carbon Dioxide 24 Anion Gap 7.0 BUN 28 H Creatinine 1.01 Est Cr Clr Drug Dosing 94.6 Est GFR ( Amer) 91.3 Est GFR (Non-Af Amer) 78.8 BUN/Creatinine Ratio 27.8 H Glucose 94 Calcium 8.3 L Magnesium 2.1 Total Bilirubin 0.2 AST 15 ALT 24 Alkaline Phosphatase 82 Troponin I < 0.015 Total Protein 5.7 L Albumin 3.1 L Globulin 2.6 Albumin/Globulin Ratio 1.2 Lipase 158 TSH 1.960 Urine Color Yellow Urine Appearance Clear Urine pH 5.0 Ur Specific [place] 1.019 Urine Protein Negative Urine Glucose (UA) Negative Urine Ketones Negative Urine Blood Negative Urine Nitrite Negative Urine Bilirubin Negative Urine Urobilinogen Negative Ur Leukocyte Esterase Negative Blood Type Antibody Screen Crossmatch 11/25/18 11/26/18 11/26/18 23:05 06:57 06:57 WBC 7.37 RBC 2.41 L Hgb 7.7 L Hct 22.6 L MCV 93.8 MCH 32.0 MCHC 34.1 RDW Std Deviation 51.5 H RDW Coeff of Hang 15.7 H Plt Count 169 MPV 9.0 Immature Gran % (Auto) Neut % (Auto) Lymph % (Auto) Saunders % (Auto) Eos % (Auto) Baso % (Auto) Immature Gran # (Auto) Neut # (Auto) Lymph # (Auto) Saunders # (Auto) Eos # (Auto) Baso # (Auto) Absolute Nucleated RBC 0.06 H Nucleated RBC % (auto) 0.9 Polychromasia PT INR APTT PTT Ratio Sodium 141 Potassium 3.7 Chloride 109 H Carbon Dioxide 25 Anion Gap 7.0 BUN 23 H Creatinine 0.91 Est Cr Clr Drug Dosing 105.6 Est GFR ( Amer) 103.6 Est GFR (Non-Af Amer) 89.4 BUN/Creatinine Ratio 24.9 H Glucose 91 Calcium 8.1 L Magnesium Total Bilirubin 0.4 AST 14 L ALT 22 Alkaline Phosphatase 65 Troponin I < 0.015 Total Protein 5.1 L Albumin 2.9 L Globulin 2.2 L Albumin/Globulin Ratio 1.3 Lipase TSH Urine Color Urine Appearance Urine pH Ur Specific [place] Urine Protein Urine Glucose (UA) Urine Ketones Urine Blood Urine Nitrite Urine Bilirubin Urine Urobilinogen Ur Leukocyte Esterase Blood Type Antibody Screen Crossmatch 11/26/18 11/27/18 11/27/18 20:36 05:43 05:43 WBC 6.57 6.01 RBC 2.35 L 2.60 L Hgb 7.8 L 8.4 L Hct 21.8 L 24.9 L MCV 92.8 95.8 MCH 33.2 32.3 MCHC 35.8 33.7 RDW Std Deviation 54.4 H 55.5 H RDW Coeff of Hang 16.8 H 17.1 H Plt Count 182 188 MPV 8.6 8.9 Immature Gran % (Auto) Neut % (Auto) Lymph % (Auto) Saunders % (Auto) Eos % (Auto) Baso % (Auto) Immature Gran # (Auto) Neut # (Auto) Lymph # (Auto) Saunders # (Auto) Eos # (Auto) Baso # (Auto) Absolute Nucleated RBC 0.06 H 0.04 H Nucleated RBC % (auto) 1.0 0.7 Polychromasia PT INR APTT PTT Ratio Sodium 140 Potassium 3.8 Chloride 108 H Carbon Dioxide 27 Anion Gap 5.0 BUN 15 Creatinine 1.02 Est Cr Clr Drug Dosing 93.1 Est GFR ( Amer) 90.2 Est GFR (Non-Af Amer) 77.9 BUN/Creatinine Ratio 15.0 Glucose 102 H Calcium 8.5 Magnesium Total Bilirubin 0.4 AST 18 ALT 29 Alkaline Phosphatase 66 Troponin I Total Protein 5.7 L Albumin 3.1 L Globulin 2.6 Albumin/Globulin Ratio 1.2 Lipase TSH Urine Color Urine Appearance Urine pH Ur Specific [place] Urine Protein Urine Glucose (UA) Urine Ketones Urine Blood Urine Nitrite Urine Bilirubin Urine Urobilinogen Ur Leukocyte Esterase Blood Type Antibody Screen Crossmatch 11/27/18 05:43 WBC RBC Hgb Hct MCV MCH MCHC RDW Std Deviation RDW Coeff of Hang Plt Count MPV Immature Gran % (Auto) Neut % (Auto) Lymph % (Auto) Saunders % (Auto) Eos % (Auto) Baso % (Auto) Immature Gran # (Auto) Neut # (Auto) Lymph # (Auto) Saunders # (Auto) Eos # (Auto) Baso # (Auto) Absolute Nucleated RBC Nucleated RBC % (auto) Polychromasia PT INR APTT PTT Ratio Sodium Potassium Chloride Carbon Dioxide Anion Gap BUN Creatinine Est Cr Clr Drug Dosing Est GFR ( Amer) Est GFR (Non-Af Amer) BUN/Creatinine Ratio Glucose Calcium Magnesium Total Bilirubin AST ALT Alkaline Phosphatase Troponin I < 0.015 Total Protein Albumin Globulin Albumin/Globulin Ratio Lipase TSH Urine Color Urine Appearance Urine pH Ur Specific [place] Urine Protein Urine Glucose (UA) Urine Ketones Urine Blood Urine Nitrite Urine Bilirubin Urine Urobilinogen Ur Leukocyte Esterase Blood Type Antibody Screen Crossmatch
[2018-11-27] MEDS: SUCRALFATE 1 GM/10 ML UDC PO SCH ×2 (09:50→13:37)
[2018-11-27 11:55] VITALS: BP 114/71; PULSE 81; TEMP 98.4
--- NOTE | 2018-11-27 14:10 | Discharge Summary ---
Date of Service November 27, 2018 Admission HPI Per Admitting Provider This is a 63 yo M with PMHx of right hip replacement surgery by Dr. Sandhu October 2018 where he was placed on DVT prophylaxis with aspirin 81 mg BID x 45 days. Other hx includes GERD, allergic rhinitis, chronic radicular lumbar pain, DDD of lumbar spine, HTN, gout, BPH, abdominal aneurysm who presents with dark tarry stools x 2 days. Pt was seen in the ER yesterday for the same complaint and Hgb = 9.7. He was placed on Protonix PO and discharged home. Today he had worsening weakness and began to feel lightheaded so PCP ordered outpatient labs- this revealed a 2g drop compared to Hgb reading yesterday. Hgb=7.6 today. Her reports intermittent nausea but no abdominal pain or vomitting. Pt denies nausea at this time and notes feeling hungry. He denies alcohol use, acidic foods, or excessive use of NSAIDS (other than the prescribed aspirin which he had been taking up until yesterday). Principal Diagnosis Acute blood loss anemia, upper GI bleed, peptic ulcer disease Discharge Exam Constitutional WD/WN, vitals as above Eyes PERRL, conjunctivae normal, anicteric sclerae ENMT external ear and nose normal, oropharynx normal Neck trachea midline, no thyromegaly Respiratory normal respiratory effort, lungs clear to auscultation Cardiovascular Rate/Rhythm: regular rate and regular rhythm Heart Sounds: no murmur Extremities: + edema (trace pitting edema right leg) Gastrointestinal (Abdomen) normal bowel sounds, soft, nontender, no hepatosplenomegaly Musculoskeletal Extremities: no cyanosis and no clubbing Skin no rashes, warm and dry Neurologic moves all extremities and awake; no focal motor deficits Psychiatric A+Ox3, euthymic affect Discharge Data Allergies Allergy/AdvReac Type Severity Reaction Status Date / Time OSMAR Inhibitors Allergy Intermediate Hives Verified 11/26/18 10:14 hydroxyzine Allergy Intermediate Hives Verified 11/26/18 10:14 Consultations 11/25/18 17:54 ED Decision to Admit Stat 11/25/18 22:18 Consult Case Management - Discharge Planning Routine Consult Gastroenterology Routine Procedures Performed Operation Date: 11/26/18 08:30 Actual Procedures p EGD Biopsy Cytology - Gatito Jessica Hospital Course (1) Acute upper GI bleed: Presented with melena and lightheadedness in the setting of taking ASA bid x 4 weeks s/p right JEAN. Was taking chronic Mobic prior to that. Hgb dropped to 6.6 and was transfused PRBCs 2 units upon admission Hemoglobin increased appropriately to 8.4 and he had no further active bleeding after admission EGD with nonbleeding gastric and duodenal ulcers, possible short segment Yang's esophagus, biopsies taken He was treated with Protonix 40mg IV bid and then converted to po Protonix 40 mg bid x 8 weeks, then should go to once daily -avoid all NSAIDs, ASA in the future -He needs a repeat endoscopy in 8 weeks to ensure ulcers are healing-GI to arrange this (2) Acute blood loss anemia: Hemoglobin dropped to 6.6 as above Now improved s/p PRBCs Secondary to PUD/UGI Bleed Follow CBC as an outpatient in 1 week with PCP -Start ferrous sulfate 325 mg p.o. twice daily after discharge (3) S/P hip replacement: - Stable, no issues Ambulating well -I discussed with his orthopedic surgeon, Dr. Sandhu, who advised that it was safe to stop all DVT prophylaxis at this point as patient is very ambulatory and the risk of bleeding outweighs the benefit (4) Abdominal aneurysm: - Follows with Dr. Tao with yearly U/S for monitoring-was told was stable (5) GERD (gastroesophageal reflux disease): Protonix as above Tums as needed (6) Osteoarthritis: avoid NSAIDs -can take acetaminophen prn (7) Chronic radicular lumbar pain: - Follows with pain management as an outpatient (8) Hypertension: - Hx of such, pt is not on antihypertensives currently - BP controlled here (9) Gout: - Stable, no recent flares (10) BPH (benign prostatic hyperplasia): No issues while here - Continue flomax (11) Chest pain: Had an episode of lower substernal chest burning and tightness on the morning of discharge. Serial troponins were negative x2. ECG was without ischemic changes. No events on telemetry It was relieved with Tums and then sucralfate and was most likely secondary to acid reflux -Continue Protonix, sucralfate upon discharge (12) DVT prophylaxis: - Teds were provided, no chemical anticoagulation with GI bleed Dispo-stable for discharge to home Total Time Total Time Spent Total Time Spent (In Minutes): Greater than 30 minutes Total Time Includes: Examination of the Patient, Discharge Planning, Medication Reconciliation and Communication With Other Providers (Gastroenterology) Discharge Plan Discharge Items Patient Disposition: Home - Self-Care Reason For Visit: GI BLEED Discharge Diagnosis: GI Bleed, Peptic ulcer disease Acute blood loss anemia Condition: Good Discharge Goals: Decrease discomfort, Diagnostic testing, Improve disease control, Learn about illness and Therapeutic intervention Activity: Resume your previous activity Lifting: Gradually increase as tolerated Bathing: No limitations Exercise/Sports: Gradually increase as tolerated Driving/Machine Use: No limitations Non-emergency contact: Primary Care Provider and Disk Sharpener Call non-emergency contact if: you have any medication questions, your symptoms worsen, your pain is not controlled, your pain is worsening, your pain is unusual for you and your pain is concerning for you Follow-up/Referrals: Aakash Tao MD [Primary Care Provider] - 12/04/18 2:00 pm (Please, follow up with Dr. Tao on SundayDecember 04 at 2:00 pm. *If you need to change this appointment, call the office at [phone].) Nirali Jacques [Nurse Practitioner] - (Please, follow up at [facility] in [facility]. *A nurse from this office will call you to arrange the appointment. If you have any questions, call the office at [phone].) Diet: Heart Healthy Diet Comment: Avoid spicy, tomato based foods, limit alcohol, caffeine Addtl Provider Instructions: You were admitted with gastrointestinal bleeding from ulcers in your stomach and small bowel. These were likely caused by taking NSAIDs such as Mobic and aspirin. Please do not take any NSAIDs or aspirin anymore. You also have a long history of acid reflux. You should take the Protonix twice daily x 8 weeks and then drop down to once daily. You will need a repeat EGD in 8 weeks to see if your ulcers are healing. If you have a return of your black tarry stools and/or feel worsening lightheadedness, please go to the ER. Please take iron pills to bring your blood count back up quicker. Ask your PCP to order you blood work to see what your blood count is in about 1 week. Please note that taking iron pills can make your stools black in color, but they will still be formed and will not be loose. Please follow up with your PCP and the GI doctor as scheduled for you. Prescriptions: New sucralfate 100 mg/mL Suspension 1 gm PO QID 10 Days Qty: 400 RF: 0 ferrous sulfate 325 mg (65 mg iron) tablet 325 mg PO BID Qty: 60 RF: 0 Continued tamsulosin [Flomax] 0.4 mg capsule 0.4 mg PO HS RF: 0 acetaminophen [Pain Reliever] 500 mg tablet 1,000 mg PO Q8 PRN (Reason: Pain) RF: 0 calcium carbonate [Tums] 200 mg calcium (500 mg) Tablet,Chewable 3 tab PO HS PRN (Reason: Indigestion) RF: 0 pantoprazole [Protonix] 40 mg tablet,delayed release (DR/EC) 40 mg PO BID Qty: 60 RF: 0 Stand-Alone Forms: [facility] Discharge Orders: Discharge Order (Routine); Ordered 11/27/18 Ordered By: Fatuma Mcmahon Admission Data Admit Date/Time: 11/25/18 18:08 Attending Provider: Fatuma Mcmahon Admit Provider: Jr Farmer Primary Care Provider: Aakash Tao Other Providers: Jr Farmer ; Geno Denney Service: Telemetry Other Interventions: Discharge Summary Assessment (RN) Last Done: 11/27/18 14:15 Pending Studies at Discharge: Yes (biopsies from EGD) DC Date/Time DO NOT enter until pt leaves facility: 11/27/18 14:47
--- NOTE | 2018-12-02 15:42 | Coding Query ---
CODING QUERY To promote full compliance with coding requirements relating to patient care, provider participation is requested in all cases of image scientist uncertainty. Please assist us with the question(s) below: Coding Question(s): Patient admitted with melena. and ABLA. EGD revealed stomach and duodenal ulcers as well as short segment Yang's. Please document, if known or suspected, the etiology of the melena. Thanks for your help! Lamonte Gomez COMPETITIVE INTELLIGENCE ANALYST [facility] Physician's Response(s): Melena secondary to peptic ulcer disease Principal Diagnosis: "that condition established after study, to be chiefly responsible for occasioning the admission of the patient to the hospital for care." Co-Existing Principal Diagnosis: "when two or more diagnoses equally meet the criteria for principal diagnosis as determined by the circumstances of admission, diagnostic work up, and/or therapy provided, and the Alphabetic Index, Tabular List, or another coding guideline does not provide sequencing direction, any one of the diagnoses may be sequenced first." "When the physician has documented what appears to be a current diagnosis in the body of the record, but has not included the diagnosis in the final diagnostic statement, the physician should be asked whether the diagnosis should be added." (Source Coding Clinic 2 QTR90. p3-4) [facility]
== END 2018-11-27 14:47 | disposition home health service (06) | DRG 811 ==
LOC: ED 15:45 → 2E 18:08 → SUATTDRO 18:08 → 2E 21:21